=== PATIENT | female | born 1940 ===

== ENCOUNTER → 2017-10-29 12:38 | Outpatient (CLI) | payer MEDICARE, OTHER, SELFPAY | PROVIDERS: Family Provider Chiropractor; PCP Physician Assistant; Visit Provider Physician Assistant | DX: M85.851 Other specified disorders of bone density and structure, right thigh (principal); Z78.0 Asymptomatic menopausal state; R29.890 Loss of height; E07.9 Disorder of thyroid, unspecified; Z82.62 Family history of osteoporosis | CPT/HCPCS: 77080 ==

== ENCOUNTER → 2017-11-26 11:09 | Outpatient (CLI) | payer MEDICARE, OTHER, SELFPAY ==
--- NOTE | 2017-11-26 11:13 | DI.RAD.S_ITS ---
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 COMPARISON: None. FINDINGS: Bones: 5 nonrib-bearing vertebrae are present. There is mild levoconvex curvature with slight anterolisthesis at L2-3 and retrolisthesis at L3-4. Mild L2 vertebral body compression fracture of indeterminate chronicity. No suspicious bony lesions. A surgical clip is present over the posterior margin of the L4-5 disc and there appears to be a left L4 laminotomy. Disc narrowing is most marked at L3-4, L4-5 and L5-S1. Soft tissues: Overlying bowel gas pattern is normal. No suspicious soft tissue calcifications. Oblique images: No pars defects. IMPRESSION: 1. Compression fracture L2 with mild volume loss, age indeterminate. 2. Multilevel degenerative disc disease. Probable prior discectomy L4-5, correlation with clinical history advised. Dictated by: Segun Milton M.D. on 11/26/2017 at 11:40 Approved by: Segun Milton M.D. on 11/26/2017 at 11:46
--- NOTE | 2017-11-26 11:13 | DI.RAD.S_ITS ---
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 COMPARISON: None. FINDINGS: Bones: No fractures or dislocations. Pelvic ring appears intact. No suspicious bony lesions. There is mild, symmetrical hip joint space narrowing with subcortical cystic changes, sclerosis and bony lipping Soft tissues: The visualized bowel gas pattern is normal. No suspicious soft tissue calcifications. IMPRESSION: 1. No acute osseous abnormality. 2. Mild bilateral degenerative hip joint disease. Dictated by: Segun Milton M.D. on 11/26/2017 at 11:38 Approved by: Segun Milton M.D. on 11/26/2017 at 11:40
--- NOTE | 2017-11-26 11:13 | DI.MRI.S_ITS ---
PROCEDURE: MR LUMBAR SPINE WO CON INDICATIONS: Post post lamina syndrome with arachnoiditis and chronic rig TECHNIQUE: Noncontrast sagittal T1 spin echo and T2 fast echo, sagittal STIR, axial T1 and T2 fast spin echo through the lumbar spine. In cases with scoliosis, additional coronal T2 fast spin echo may be performed. COMPARISON: None. FINDINGS: Image quality: Excellent. Alignment and Curvature: Trace anterolisthesis of L2 on L3 Bone Marrow: Marrow is of normal overall signal. There is diffuse lower thoracic disc degeneration with multilevel mild posterior disc bulges. Chronic appearing L2 compression fracture. No acute vertebral body compression fracture. Spinal Cord: Conus medullaris terminates at the T12-L1 level. Visualized cord demonstrates normal signal and size. Paraspinous Soft Tissues: A presumed right renal cysts although technically nonspecific. L1-L2: Broad-based posterior disc bulge abuts arthropathy. Marked narrowing which is contributed by dorsal epidural lipomatosis. Moderate bilateral foraminal narrowing L2-L3: Broad-based posterior disc bulge facet disease. Moderate canal narrowing which is contributed by dorsal epidural lipomatosis. Mild left and mild right foraminal stenosis. L3-L4: Broad-based posterior disc bulge bilateral facet arthropathy. No definite canal narrowing. Moderate left and [id number] right foraminal narrowing. L4-L5: Mild broad-based posterior disc bulge and bilateral facet arthropathy. There is heterogeneous signal intensity involving the right aspect of the canal presumably related to given clinical history of arachnoiditis, with possible chronic scarring. Mild canal narrowing. Moderate left and right foraminal stenoses. L5-S1: Broad-based posterior disc bulge and tiny superimposed central disc protrusion. Moderate canal stenosis. Moderate left and right foraminal narrowing.. IMPRESSION: Multilevel lumbar disc degeneration, with trace anterolisthesis of L2 on L3. Moderate L1-L2, L2-L3 and L5-S1 canal stenoses. Heterogeneous appearance of the spinal canal, nerve roots and thickened thecal sac at the level of L4-L5 presumably related to arachnoiditis and chronic sequela/scarring. Diffuse bilateral foraminal stenoses as detailed above by spinal level. Dictated by: Raulito Avilez M.D. on 11/26/2017 at 13:16 Approved by: Raulito Avilez M.D. on 11/26/2017 at 13:26
== END ==
PROVIDERS: Family Provider Chiropractor; PCP Physician Assistant; Visit Provider Physical Medicine & Rehabilitation
DX: M21.371 Foot drop, right foot (principal); M96.1 Postlaminectomy syndrome, not elsewhere classified; G03.9 Meningitis, unspecified; M51.36 Other intervertebral disc degeneration, lumbar region; M48.061 Spinal stenosis, lumbar region without neurogenic claudication; M16.0 Bilateral primary osteoarthritis of hip; M48.56XA Collapsed vertebra, not elsewhere classified, lumbar region, initial encounter for fracture
CPT/HCPCS: 72110; 72148; 73522

== ENCOUNTER 2018-01-15 09:22 | Outpatient (CLI) | payer MEDICARE, OTHER, SELFPAY ==
[2018-01-15] VITALS (11 sets, daily range): BP systolic 105–134; BP diastolic 47–72; PULSE 63–72; RESP 16–20; TEMP 36.6; O2SAT 97–100
--- NOTE | 2018-01-15 09:24 | DI.RAD.S_ITS ---
PROCEDURE: PAIN L/S TRANSFORAMINAL INJECT INDICATIONS: 79520 Right Transforaminal Epidural Steroid Injection FINDINGS: Fluoroscopic spot filming was performed to verify placement of a spinal needle at the L4-L5 level. Appropriate location(s) of the needle tip(s) was confirmed by injection of iodinated contrast. Please correlate with intraoperative findings. IMPRESSION: Intraprocedural examination within normal limits. Dictated by: Ty Alvarado M.D. on 01/15/2018 at 17:08 Approved by: Ty Alvarado M.D. on 01/15/2018 at 17:08
[2018-01-15] MEDS: MIDAZOLAM 5 MG/5 ML VIAL IV (10:30)
[2018-01-15] MEDS: IOPAMIDOL 15 ML VIAL 3 ML INJ (10:48)
[2018-01-15] MEDS: BUPIVACAINE 0.25% (PF) VIAL 2 ML INJ (10:48)
[2018-01-15] MEDS: methylPREDNISolone acetate 80 MG/ML VIAL INJ (10:49)
[2018-01-15] MEDS: DEXAMETHASONE 10 MG/ML VIAL 20 MG INJ (10:49)
--- NOTE | 2018-01-15 10:55 | P.PCN_ITS ---
Procedures Date/Time Date of procedure: 01/15/18 Time of procedure: 10:54 General Procedure description: PREOP DIAGNOSIS 1. FORMAINAL STENOSIS WITH LE SYMPTOMS POST OP DIAGNOSIS 1. FORMAINAL STENOSIS WITH LE SYMPTOMS PROCEDURES 1. FLUOROSCOPICALLY GUIDED CONTRAST CONTROLLED TRANSFORAMINAL EPIDURAL STEROID INJECTION - RIGHT L4/5 TFESI PHYSICIAN: Severo Souza DO INDICATIONS: Veronica is referred by PAC Denys for treatment of Foraminal Stenosis with Right LE Symptoms FINDINGS Foraminal Nerve Root Compression secondary to disc disease and facet hypertrophy DESCRIPTION OF PROCEDURE: Following denial of allergy and review of potential side effects and complications, including, but not necessarily limited to, infection, allergic reaction, local tissue breakdown, stroke, temporary or permanent nerve injury, paralysis, and possible , the patient indicated that the patient understood and agreed to proceed. An informed consent document was signed by the patient, witnessed by a nurse, and placed in the patient's chart. Additionally, other treatment options including medications, modalities, and physical therapy were reviewed with the patient. After review of previous anaesthesic history and IV conscious sedation the patient was deemed safe to proceed with todays procedure with IV conscious sedation as ASA class II designation. Safety time-out was performed to confirm patient ID, procedure to be performed and site of procedure. IV sedation was accomplished with a combination of 3mg of Versed was administered by the RN after DO order, titrated to patient comfort during the course of the procedure while the patient remained responsive to all verbal commands In the prone position following sterile prep and drape of the lumbar region, the Right L4/5 posterior neuroforamen was identified fluoroscopically. The skin was anesthetized via a 25-gauge 1.5-inch needle with 1% lidocaine solution. At this point, a 25-gauge 3.5-inch spinal needle was atraumatically introduced and advanced under fluoroscopic guidance through the posterior Right L4/5 neuroforamen to approximately the anterior aspect of the canal. Depth was confirmed on lateral view. Following negative aspiration, injection of approximately 1.5 cc of Isovue 200 under live fluoroscopy in the AP view confirmed excellent flow along the nerve root, into the epidural space without vascular or intrathecal uptake observed Radiological data, including multiple fluoroscopic views of the lumbosacral spine, reveal a spinal needle at the right L4/5 posterior neuroforamen. Subsequent views show flow of contrast material flowing superiorly and inferiorly along the nerve root confirming epidural flow. Subsequently, a test dose of 1.5 cc of 1% lidocaine solution was administered and patient was observed for two minutes for signs or symptoms of complications , including abdominal pain, shortness of breath, bilateral upper or lower extremity weakness, nausea and vomiting, prior to steroid injection. At this point, a total of 3 cc or 20 mg of dexamethasone and 80mg Depo Medrol was injected without incident. The procedure tolerated the procedure well without signs or symptoms of complications prior to transfer to the recovery area continued monitoring without incident.The patient was then transferred to the recovery area where they were observed for an appropriate time after the injection. The patient reported a VAS score of 7 prior to the procedure and a post- procedure VAS of 0. Total Fluoroscopy Time: 20.9 seconds Total Conscious Sedation Time: 24min POST OP INSTRUCTIONS The patient was provided a Pain Log to continue to record their response to the target-specific procedure prior to follow-up visit with their referring physician. Additionally, specific post-injection care instructions and a contact number to our office were provided if concerns arise regarding possible complications associated with the procedure are suspected. Severo Souza DO Complications: none
== END 2018-01-15 11:38 ==
LOC: RAD 09:23
PROVIDERS: Family Provider Chiropractor; PCP Physician Assistant; Visit Provider Physical Medicine & Rehabilitation
DX: M51.16 Intervertebral disc disorders with radiculopathy, lumbar region (principal)
CPT/HCPCS: 64483; 99152; 99153; J1040; J1100; J2250

== ENCOUNTER 2018-02-19 12:45 | Outpatient (CLI) | payer MEDICARE, OTHER, SELFPAY ==
[2018-02-19] VITALS (8 sets, daily range): BP systolic 111–133; BP diastolic 47–76; PULSE 63–69; RESP 16–18; TEMP 36.9; O2SAT 94–100
--- NOTE | 2018-02-19 12:48 | DI.RAD.S_ITS ---
PROCEDURE: PAIN L INTERLAMINAR/CAUDAL INJ INDICATIONS: 87157 Para Right L5/S1 Tl CELESTINA FINDINGS: Fluoroscopic spot filming was performed to verify placement of spinal needles at the right L5-S1 level(s), as labeled on the films. Appropriate location(s) of the needle tip(s) was confirmed by injection of iodinated contrast. Dictated by: Raulito Avilez M.D. on 02/19/2018 at 16:42 Approved by: Raulito Avilez M.D. on 02/19/2018 at 16:42
[2018-02-19] MEDS: MIDAZOLAM 5 MG/5 ML VIAL IV (14:24)
[2018-02-19] MEDS: BUPIVACAINE 0.25% (PF) VIAL 2 ML INJ (14:31)
[2018-02-19] MEDS: LIDOCAINE 1% 20 ML INJ 5 ML INJ (14:31)
[2018-02-19] MEDS: IOPAMIDOL 15 ML VIAL 3 ML INJ (14:31)
[2018-02-19] MEDS: DEXAMETHASONE 10 MG/ML VIAL 20 MG INJ (14:31)
[2018-02-19] MEDS: methylPREDNISolone acetate 80 MG/ML VIAL INJ (14:32)
--- NOTE | 2018-02-19 14:45 | P.PCN_ITS ---
Procedures Date/Time Date of procedure: 02/19/18 Time of procedure: 14:44 General Procedure description: PROVIDER: Severo Souza DO Operative Note PREOP DIAGNOSIS 1. HNP WITH RADICULAR FEATURES, 2. MULTILEVEL CENTRAL STENOSIS, POST OP DIAGNOSIS 1. HNP WITH RADICULAR FEATURES, 2. MULTILEVEL CENTRAL STENOSIS, PROCEDURES 1. FLUORSCOPICALLY GUIDED CONTRAST CONTROLLED INTERLAMINAR EPIDURAL STEROID INJECTION - L5/S1 PHYSICIAN: Severo Souza DO INDICATIONS Veronica is referred by for treatment of Bilateral Foraminal Stenosis L> R LE symptoms. FINDINGS Multilevel Central Spinal Stenosis with Nerve Root Compression DESCRIPTION OF PROCEDURE Fluoroscopically guided, contrast-controlled L5/S1 translaminar epidural steroid injection. Following denial of allergy and review of potential side effects and complications, including, but not necessarily limited to, infection, allergic reaction, local tissue breakdown, temporary as well as permanent nerve injury, paralysis, stroke and possible , the patient indicated that the patient understood and agreed to proceed. An informed consent document was signed by the patient, witnessed by a nurse, and placed in the patient's chart. Additionally, other treatment options including modalities, medications, and physical therapy were reviewed with the patient. After review of previous anaesthesic history and IV conscious sedation the patient was deemed safe to proceed with todays procedure with IV conscious sedation as ASA class II designation. Safety time-out was performed to confirm patient ID, procedure to be performed and site of procedure. IV sedation was accomplished with a combination of 3mg of Versed administered by the RN after DO order, titrated to patient comfort during the course of the procedure while the patient remained responsive to all verbal commands. In the prone position, following sterile prep and drape of the lumbar region, the L5/S1 translaminar space was identified fluoroscopically. The skin was anesthetized via a 25-gauge, 1.5-inch needle with 1% lidocaine solution. At this point, a 22-gauge short bevel spinal needle was atraumatically introduced and advanced under fluoroscopic guidance into the region of the L5/S1 translaminar space. Depth was confirmed on lateral view. Radiological data, including multiple fluoroscopic views of the lumbar spine, reveal a spinal needle at the L5/S1 translaminar space. Lateral views then show placement of the needle in the epidural space. Subsequent views show contrast material flowing superiorly and inferiorly in the epidural space. No vascular or intrathecal uptake is observed. At this point, using loss of resistance technique with saline and air, the epidural space was entered. This was confirmed following negative aspiration with injection of approximately 1.5 cc of Isovue 200, showing excellent epidural flow without vascular or intrathecal uptake. At this point, 1 cc of 1 % lidocaine solution combined with 3 cc or 20 mg of dexamethasone and 80mg Depo medrol was injected without incident. The patent tolerated the procedure without signs of symptoms of complications prior to transfer to the recovery area for further monitoring. The patient was then transferred to the recovery area where they were observed for an appropriate period of time after the injection. The patient reported a VAS score of 6 prior to the procedure and a post-procedure VAS of 0. Total Fluoroscopy Time: 11.8 seconds Total Conscious Sedation Time: 24min POST OP INSTRUCTIONS The patient was provided a Pain Log to continue to record their response to the target-specific procedure prior to follow-up visit with their referring physician. Additionally, specific post-injection care instructions and a contact number to our office were provided if concerns arise regarding possible complications associated with the procedure are suspected. Severo Souza DO Complications: none
--- NOTE | 2018-02-19 14:54 | PC.NURSE ---
approx 1434 assisted pt off proc table into wheelchair and transported to post proc area in stable condition
== END 2018-02-19 15:33 ==
LOC: RAD 12:47
PROVIDERS: Family Provider Chiropractor; PCP Physician Assistant; Visit Provider Physical Medicine & Rehabilitation
DX: M51.17 Intervertebral disc disorders with radiculopathy, lumbosacral region (principal); M48.062 Spinal stenosis, lumbar region with neurogenic claudication; M96.1 Postlaminectomy syndrome, not elsewhere classified; M16.11 Unilateral primary osteoarthritis, right hip
CPT/HCPCS: 62323; 99152; J1040; J1100; J2250

== ENCOUNTER → 2018-03-06 11:30 | Outpatient (CLI) | payer MEDICARE, OTHER, SELFPAY ==
--- NOTE | 2018-03-06 | DI.MG.S_ITS ---
BILATERAL DIGITAL SCREENING MAMMOGRAM 3D/2D WITH CAD POST LUMPECTOMY: 03/06/2018 CLINICAL: Routine screening. Personal history of breast cancer. Family history of breast cancer. Comparison is made to exams dated: 12/11/2016 mammogram, 11/30/2015 mammogram - [facility], and 10/20/2014 [facility]. The tissue of both breasts is heterogeneously dense. This may lower the sensitivity of mammography. Current study was also evaluated with a Computer Aided Detection (CAD) system. There are benign post operative findings in the right breast. There also are benign calcifications in both breasts. No significant masses, calcifications, or other findings are seen in either breast. There has been no significant interval change. IMPRESSION: There is no mammographic evidence of malignancy. A 1 year screening mammogram is recommended. This exam was interpreted at Station ID: [id number]. NOTE: For mammograms, a report in lay terms will be sent to the patient. Approximately 15% of breast malignancies will not be visualized mammographically. In the management of a palpable breast mass, a negative mammogram must not discourage biopsy of a clinically suspicious lesion. Electronically Signed By: Natty morataya/angie:03/07/2018 09:05:02 copy to: MARQUIS FLORES copy to: Sherrill Mcfarlane letter sent: Normal Exam ACR BI-RADS Category 2: Benign Finding(s) [id number]
== END ==
PROVIDERS: Family Provider Chiropractor; PCP Physician Assistant; Visit Provider Surgery
DX: Z12.31 Encounter for screening mammogram for malignant neoplasm of breast (principal); Z85.3 Personal history of malignant neoplasm of breast; Z80.3 Family history of malignant neoplasm of breast
CPT/HCPCS: 77063; 77067

== ENCOUNTER 2018-05-07 07:05 | Outpatient (CLI) | payer MEDICARE, OTHER, SELFPAY ==
[2018-05-07] VITALS (8 sets, daily range): BP systolic 104–128; BP diastolic 46–73; PULSE 64–74; RESP 16–18; TEMP 36.7; O2SAT 96–100
--- NOTE | 2018-05-07 07:10 | DI.RAD.S_ITS ---
PROCEDURE: PAIN L/S TRANSFORAMINAL INJECT INDICATIONS: SPINAL STENOSIS FINDINGS: Fluoroscopic spot filming was performed to verify placement of spinal needles at the L3-L4 level(s), as labeled on the films. Appropriate location(s) of the needle tip(s) was confirmed by injection of iodinated contrast. Dictated by: Raulito Avilez M.D. on 05/07/2018 at 11:25 Approved by: Raulito Avilez M.D. on 05/07/2018 at 11:27
[2018-05-07] MEDS: MIDAZOLAM 5 MG/5 ML VIAL IV (08:33)
[2018-05-07] MEDS: methylPREDNISolone acetate 80 MG/ML VIAL INJ (08:38)
[2018-05-07] MEDS: IOPAMIDOL 15 ML VIAL 3 ML INJ (08:38)
[2018-05-07] MEDS: DEXAMETHASONE 10 MG/ML VIAL 20 MG INJ (08:38)
[2018-05-07] MEDS: BUPIVACAINE 0.25% (PF) VIAL 2 ML INJ (08:38)
--- NOTE | 2018-05-07 08:56 | P.PCN_ITS ---
Procedures Date/Time Date of procedure: 05/07/18 Time of procedure: 08:55 General Procedure description: PROVIDER: Severo Souza DO Operative Note PREOP DIAGNOSIS 1. FORAMINAL STENOSIS WITH LE SYMPTOMS, POST OP DIAGNOSIS 1. FORAMINAL STENOSIS WITH LE SYMPTOMS, PROCEDURES 1. FLUOROSCOPICALLY GUIDED CONTRAST CONTROLLED TRANSFORAMINAL EPIDURAL STEROID INJECTION - RIGHT L3/4 TFESI SURGEON: Severo Souza DO INDICATIONS Carline is referred by PAC Denys for treatment of Foraminal Stenosis with right LE Symptoms FINDINGS Foraminal Nerve Root Compression secondary to disc disease and facet hypertrophy DESCRIPTION OF PROCEDURE Following denial of allergy and review of potential side effects and complications, including, but not necessarily limited to, infection, allergic reaction, local tissue breakdown, stroke, temporary or permanent nerve injury, paralysis, and possible , the patient indicated that the patient understood and agreed to proceed. An informed consent document was signed by the patient, witnessed by a nurse, and placed in the patient's chart. Additionally, other treatment options including medications, modalities, and physical therapy were reviewed with the patient. After review of previous anaesthesic history and IV conscious sedation the patient was deemed safe to proceed with todays procedure with IV conscious sedation as ASA class II designation. Safety time-out was performed to confirm patient ID, procedure to be performed and site of procedure. IV sedation was accomplished with a combination of 3mg was administered by the RN after DO order , titrated to patient comfort during the course of the procedure while the patient remained responsive to all verbal commands In the prone position following sterile prep and drape of the lumbar region, the right L3/4 posterior neuroforamen was identified fluoroscopically. The skin was anesthetized via a 25-gauge 1.5-inch needle with 1% lidocaine solution. At this point, a 25-gauge 3.5-inch spinal needle was atraumatically introduced and advanced under fluoroscopic guidance through the posterior right L3/4 neuroforamen to approximately the anterior aspect of the canal. Depth was confirmed on lateral view. Following negative aspiration, injection of approximately 1.5 cc of Isovue 200 under live fluoroscopy in the AP view confirmed excellent flow along the nerve root, into the epidural space without vascular or intrathecal uptake observed Radiological data, including multiple fluoroscopic views of the lumbosacral spine, reveal a spinal needle at the right L3/4 posterior neuroforamen. Subsequent views show flow of contrast material flowing superiorly and inferiorly along the nerve root confirming epidural flow. Subsequently, a test dose of 1.5 cc of 1% lidocaine solution was administered and patient was observed for two minutes for signs or symptoms of complications , including abdominal pain, shortness of breath, bilateral upper or lower extremity weakness, nausea and vomiting, prior to steroid injection. At this point, a total of 3 cc or 20 mg of dexamethasone and 80mg Depo medrol was injected without incident. The patient tolerated the procedure well without signs or symptoms of complications prior to transfer to the recovery area continued monitoring without incident. The patient was then transferred to the recovery area where they were observed for an appropriate time after the injection. The patient reported a VAS score of 7 prior to the procedure and a post-procedure VAS of 0. Total Fluoroscopy Time: 24.2 seconds Total Conscious Sedation Time: 24min POST OP INSTRUCTIONS The patient was provided a Pain Log to continue to record their response to the target-specific procedure prior to follow-up visit with their referring physician. Additionally, specific post-injection care instructions and a contact number to our office were provided if concerns arise regarding possible complications associated with the procedure are suspected. Severo Souza, Complications: none
--- NOTE | 2018-05-07 09:38 | PC.NURSE ---
Returned from post procedure at 0851. pt unable to bear weight on bilateral legs. able to transfer her safely from W/C to chair with pivot transfer. Resumed Care from Franchesca WINKLER. pt awake and alert.
== END 2018-05-07 09:30 ==
LOC: RAD 07:09
PROVIDERS: Family Provider Chiropractor; PCP Physician Assistant; Visit Provider Physical Medicine & Rehabilitation
DX: M48.062 Spinal stenosis, lumbar region with neurogenic claudication (principal); M51.16 Intervertebral disc disorders with radiculopathy, lumbar region; G03.9 Meningitis, unspecified
CPT/HCPCS: 64483; 99152; J1040; J1100; J2250

== ENCOUNTER 2018-07-08 07:55 | Outpatient (CLI) | payer MEDICARE, OTHER, SELFPAY ==
[2018-07-08] VITALS (7 sets, daily range): BP systolic 101–124; BP diastolic 51–79; PULSE 63–102; RESP 16–18; TEMP 36.5; O2SAT 98–100
--- NOTE | 2018-07-08 07:56 | DI.RAD.S_ITS ---
PROCEDURE: PAIN L INTERLAMINAR/CAUDAL INJ INDICATIONS: SPINAL STENOSIS FINDINGS: Fluoroscopic spot filming was performed to verify placement of spinal needles at the L3-L4 level(s), as labeled on the films. Appropriate location(s) of the needle tip(s) was confirmed by injection of iodinated contrast. Dictated by: Raulito Avilez M.D. on 07/08/2018 at 10:37 Approved by: Raulito Avilez M.D. on 07/08/2018 at 10:37
[2018-07-08] MEDS: MIDAZOLAM 5 MG/5 ML VIAL IV (09:00)
[2018-07-08] MEDS: IOPAMIDOL 15 ML VIAL 3 ML INJ (09:05)
[2018-07-08] MEDS: DEXAMETHASONE 10 MG/ML VIAL 20 MG INJ (09:05)
[2018-07-08] MEDS: BUPIVACAINE 0.25% (PF) VIAL 2 ML INJ (09:05)
--- NOTE | 2018-07-08 09:11 | PC.NURSE ---
assisting pt off table and transporting to post proc area in stable condition
--- NOTE | 2018-07-08 09:12 | P.PCN_ITS ---
Procedures Date/Time Date of procedure: 07/08/18 Time of procedure: 09:12 General Procedure description: POST OP DIAGNOSIS 1. HNP WITH RADICULAR FEATURES, 2. MULTILEVEL CENTRAL STENOSIS, PROCEDURES 1. FLUORSCOPICALLY GUIDED CONTRAST CONTROLLED INTERLAMINAR EPIDURAL STEROID INJECTION - L3/4 PHYSICIAN: Severo Souza DO INDICATIONS Veronica is referred by PAC Denys for treatment of Bilateral Foraminal Stenosis L>R LE symptoms. FINDINGS Multilevel Central Spinal Stenosis with Nerve Root Compression DESCRIPTION OF PROCEDURE Fluoroscopically guided, contrast-controlled L3/4 translaminar epidural steroid injection. Following denial of allergy and review of potential side effects and complications, including, but not necessarily limited to, infection, allergic reaction, local tissue breakdown, temporary as well as permanent nerve injury, paralysis, stroke and possible , the patient indicated that the patient understood and agreed to proceed. An informed consent document was signed by the patient, witnessed by a nurse, and placed in the patient's chart. Additionally, other treatment options including modalities, medications, and physical therapy were reviewed with the patient. After review of previous anaesthesic history and IV conscious sedation the patient was deemed safe to proceed with todays procedure with IV conscious sedation as ASA class II designation. Safety time-out was performed to confirm patient ID, procedure to be performed and site of procedure. IV sedation was accomplished with a combination of 3mg of Versed was administered by the RN after DO order, titrated to patient comfort during the course of the procedure while the patient remained responsive to all verbal commands. In the prone position, following sterile prep and drape of the lumbar region, the L3/4 translaminar space was identified fluoroscopically. The skin was anesthetized via a 25-gauge, 1.5-inch needle with 1% lidocaine solution. At this point, a 22-gauge short bevel spinal needle was atraumatically introduced and advanced under fluoroscopic guidance into the region of the L3/4 translaminar space. Depth was confirmed on lateral view. Radiological data, including multiple fluoroscopic views of the lumbar spine, reveal a spinal needle at the L3/4 translaminar space. Lateral views then show placement of the needle in the epidural space. Subsequent views show contrast material flowing superiorly and inferiorly in the epidural space. No vascular or intrathecal uptake is observed. At this point, using loss of resistance technique with saline and air, the epidural space was entered. This was confirmed following negative aspiration with injection of approximately 1.5 cc of Isovue 200, showing excellent epidural flow without vascular or intrathecal uptake. At this point, 1 cc of 1% lidocaine solution combined with 2cc or 20mg of dexamethasone was injected without incident. The patient tolerated the procedure well without signs or symptoms of complications prior to transfer to the recovery area continued monitoring without incident. The patient was then transferred to the recovery area where they were observed for an appropriate period of time after the injection. The patient reported a VAS score of 6 prior to the procedure and a post- procedure VAS of 0. Total Fluoroscopy Time: 11.8 seconds Total Conscious Sedation Time: 24min POST OP INSTRUCTIONS The patient was provided a Pain Log to continue to record their response to the target-specific procedure prior to follow-up visit with their referring physician. Additionally, specific post-injection care instructions and a contact number to our office were provided if concerns arise regarding possible complications associated with the procedure are suspected. Severo Souza, Complications: none
--- NOTE | 2018-07-08 09:38 | PC.NURSE ---
pt returned from procedure awake and alert, able to transfer to chair from W/C with minimal assist, pt a little unsteady on feet. She did get her jeans buttoned up by herself while standing. Resumed monitoring from Franchesca WINKLER.
--- NOTE | 2018-07-09 11:54 | PC.NURSE ---
ATTEMPTED FOLLOW UP PHONE CALL, PHONE BUSY, WILL ATTEMPT AGAIN BEFORE END OF DAY.
== END 2018-07-08 09:54 ==
LOC: RAD 07:56
PROVIDERS: Family Provider Chiropractor; PCP Physician Assistant; Visit Provider Physical Medicine & Rehabilitation
DX: M51.16 Intervertebral disc disorders with radiculopathy, lumbar region (principal); M48.062 Spinal stenosis, lumbar region with neurogenic claudication; M96.1 Postlaminectomy syndrome, not elsewhere classified; G03.9 Meningitis, unspecified
CPT/HCPCS: 62323; 99152; J1100; J2250; J3010

== ENCOUNTER 2018-11-03 14:15 | Outpatient (RCR) | payer MEDICARE, OTHER, SELFPAY ==
--- NOTE | 2018-10-01 17:55 | PT.OIE ---
Current Diagnoses Unilateral primary osteoarthritis, right hip (10/01/18) Spinal stenosis, lumbar region with neurogenic claudication (10/01/18) Postlaminectomy syndrome, not elsewhere classified (10/01/18) Provider Visit Care Team Role Provider Type Sherrill Mcfarlane PA-C Primary Care Provider Non-Staff Specialty: Medical Address: [address] [place], [address] Email: Carine Hill DC Family Provider Non-Staff Specialty: Medical Address: [address] [place], [address] Email: Severo Souza DO Attending Provider Physician Specialty: Physiatry Pain Management Address: [address] [place] [address], [id number] Email: Physical Therapy Initial Evaluation PT-OP-A Visit Information Start: 10/01/18 12:40 Freq: Status: Active Protocol: Document 10/01/18 13:45 HH (Rec: 10/01/18 17:52 [email or web address]) Out-Patient Physical Therapy Visit Information Visit Information Visit Type Initial Evaluation Visit Start Time 13:45 Visit Stop Time 14:30 Total Visit Minutes 45 Visit Number 1 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 reports her LBP started since and received L4-L5 laminectomy in 1971 which resulted Cauda equina syndrome and R foot drop, along with persistent back pain. She had her 2nd laminectomy on the same region in which did relieve her some back pain. She also started to use R AFO since her 2nd surgery. She stated she started to have R hip pain and progressive decrease in strength and mobility due to her pain. 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 She is also seeing chiropractor one every 2weeks for many years and it has been helpful for her. 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 She has difficulty carrying 40-50lbs objects at waist level as well. Prior Treatments and Tests L4-L5 laminectomy in 1971 and Seeing chiropractor once every 2 weeks. Physical therapy 3-4 years ago for overall strengthening Treatment Goals Patient/Caregiver Goals 1. 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 to increase overall balance so she wont fall in the next 6 months 3. 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 Patient Questionnaires Lower Extremity Functional Scale LEFS Score 31 LEFS Impairment 60 to 79% Impaired (Score 17- 31) OP-PT Pain Assessment Location Lower Back Pain Location Details LBP Intensity 5 Scale Used Numeric (1 - 10) Description Aching Dull Frequency Constant Pain Aggravating Factors Standing Sitting Pain Alleviating Factors Exercise PT-OP-D Balance Start: 10/01/18 12:40 Freq: Status: Active Protocol: Document 10/01/18 13:45 HH (Rec: 10/01/18 17:52 HH [email or web address]) OP-PT Balance Assessment Sitting Balance Static Sitting Balance Ability Normal Dynamic Sitting Balance Ability Normal Standing Balance Static Standing Balance Ability Good Dynamic Standing Balance Ability Good Balance Tests Single Limb Standing Single Limb- Right unable Single Limb- Left unable Gonzalez Fall Scale Copyright Permission Carlos JM, Carlos RM, Claudine SJ. Development of a scale to identify the fall- prone patient. Can J Aging 1989;8;366-7. Phan Gonzalez (2009). Preventing patient falls. (2nd ed). [place]: [place]. PT-OP-G Mobility & Gait Start: 10/01/18 12:40 Freq: Status: Active Protocol: Document 10/01/18 13:45 HH (Rec: 10/01/18 17:52 [email or web address]) OP Gait Assessment Gait Gait Assistance Required: Independent Assistive Devices Assistive Device None Gait Deviations General Gait Pattern Antalgic Decreased Stride Length Decreased Feet Clearance Factors Limiting Gait Function Factors Limiting Gait Function Abnormal Tonal Influences Decreased Activity Tolerance Decreased Sensation Decreased Strength Limited Range of Motion Pain Poor Balance Poor Safety Awareness Comments Gait Comments Steppage gait with/ without R AFO due to R foot drop. Unable to perform heel strike Stair Climbing Evaluation Devices Stair Climbing Assistive Devices Left Railing Right Railing Technique/Endurance Stair Climbing Direction Ascend and Descend Stair Climbing Technique Step Over Step PT-OP-H Neuro Start: 10/01/18 12:40 Freq: Status: Active Protocol: Document 10/01/18 13:45 HH (Rec: 10/01/18 17:52 [email or web address]) Sensation Evaluation Gross Sensation Gross Sensation Right LE Impaired Sensation Description Numbness Dermatome Impairments S1 Deep Tendon Reflex & Clonus Assessment Deep Tendon Reflex Bilateral Achilles Deep Tendon Reflex 1+ Diminished Bilateral Patellar Deep Tendon Reflex 2+ Normal PT-OP-J Posture/Palpation/Skin Start: 10/01/18 12:40 Freq: Status: Active Protocol: Document 10/01/18 13:45 HH (Rec: 10/01/18 17:52 [email or web address]) Palpation Assessment Location lumbar region Palpation Findings Soft Tissue Tightness Muscle Guarding Tenderness Palpation Details significant tenderness to pressure at lumbar spine L1-l5 and paraspinals. PT-OP-K Range of Motion Start: 10/01/18 12:40 Freq: Status: Active Protocol: Document 10/01/18 13:45 HH (Rec: 10/01/18 17:52 [email or web address]) Lumbar Spine Range of Motion Lumbar Spine Percentage Testing Position Sitting Flexion 40 Extension 20 Rotation Left 50 Rotation Right 30 ROM Limitations Soft Tissue Tightness Muscle Weakness Pain Comments increase in pain with end range for all directions (ext > flexion> rotation) Ankle and Foot Goniometric Range of Motion Ankle and Foot Measured in Degrees Right Active Ankle/Foot ROM WFL No Testing Position Supine Plantarflexion 50 Ankle and Foot ROM Limitations ROM Limitations Muscle Weakness Muscle Tone Comments R DF = at negative 10 degrees PT-OP-M Strength Start: 10/01/18 12:40 Freq: Status: Active Protocol: Document 10/01/18 13:45 HH (Rec: 10/01/18 17:52 [email or web address]) Hip Strength Hip Manual Muscle Testing Right Flexion (L2) 4 Good Extension (S1) 4- Good- Abduction 4- Good- Adduction 4 Good Left Flexion (L2) 4 Good Extension (S1) 4 Good Abduction 4 Good Adduction 4 Good Knee Strength Knee Manual Muscle Testing Right Flexion (S2) 3+ Fair+ Extension (L3) 4+ Good+ Left Flexion (S2) 3+ Fair+ Extension (L3) 4+ Good+ Ankle/Foot Strength Ankle and Foot Manual Muscle Testing Right Dorsiflexion (L4) 0 Zero Plantarflexion (S1) 4 Good Inversion 1 Trace Eversion (S1) 3- Fair- Left Dorsiflexion (L4) 4+ Good+ Plantarflexion (S1) 4+ Good+ Inversion 4+ Good+ Eversion (S1) 4+ Good+ PT-OP-T Assessment and Plan Start: 10/01/18 12:40 Freq: Status: Active Protocol: Document 10/01/18 13:45 HH (Rec: 10/01/18 17:52 [email or web address]) Physical Therapy Assessment Rehab Potential Rehabilitation Potential Good Evaluation Complexity Number of Personal Factors/Comorbidities 3 or More Number of Body Systems Impaired 4 or More Clinical Presentation at Evaluation Stable Impairments Impairments Activity Tolerance Balance Functional Activities Functional Mobility Gait Pain Posture ROM Sensation Soft Tissue Mobility Strength Tone Transfers Other Concerns Fall Risk high Barriers to Rehabilitation depression fibromyalgia breast CA in 2004 Goals floor recovery Impairment unable to recover from floor independently Binder Stripper Hand Goal (LTG) Pt will be able to recover from floor independently in a safe manner LTG Duration 12 weeks strength Impairment unable to carry weight due to overall weakness Care Home Goal (LTG) Pt will be able to carry objects with 20-30# at waist level therefore 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 LTG Duration 12 weeks Assessment Summary Assessment Pt is a 78 yo female presented to clinic with c/o chronic LBP, R hip pain, generalized muscle weakness, impaired activity tolerance and impaired gait. Pt is high complexity due to her complicated past medical history and high fall risk. Upon assessment, pt presents significant limited trunk ROM especially lumbar region due to pain which is difficult to assess special test. She has decreased sensation to light touch, pressure and proprioception with S1 dermatome (especially at her distal RLE) . Noticeable hamstring weakness bilaterally and foot drop on R foot due to her failed 1st back surgery . Pt also presents significant poor dynamic and single leg balance (unable to perform), with a recent hx of multiple falls. During gait analysis, pt uses a high steppage gait with/ without her R AFO Posterior [place]. She often loses balance during turns and movement inititaion. Cont balance assessment is needed such as DGI and [place] for next visit. Also recommended pt to acquire new R AFO if possible since her current one's lateral spring is broken. 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 Physical Therapy Plan Frequency and Duration Frequency of Treatment 2x/Week Duration of Treatment 12 Plan of Care Start Date 10/01/18 Plan of Care End Date 01/01/19 Therapeutic Interventions Therapeutic Interventions Aquatic Therapy Balance Training Gait Training Home Exercise Program Joint Mobilizations Manual Therapy Neuromuscular Re-education Orthotic/Prosthetic Management Patient/Caregiver Education Self-Care/Home Management Soft Tissue Mobilization Taping Therapeutic Activities Therapeutic Exercises Modalities Cold Pack/Ice Massage Electric Stimulation Hot Packs Infrared Therapy Ultrasound Next Visit Focus/Plan Next Note Type Treatment Note Next Visit Plan balance assessment, TUG, [place], DGI check LLD, heel lift if possible HEP manual therapy on low back for relaxation trunk ROM as daphney hip strengthening and stability training as daphney ( single leg and bilateral) balance training as daphney
--- NOTE | 2018-10-09 18:55 | PT.OTN ---
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 reports her LBP started since and received L4-L5 laminectomy in 1971 which resulted Cauda equina syndrome and R foot drop, along with persistent back pain. She had her 2nd laminectomy on the same region in which did relieve her some back pain. She also started to use R AFO since her 2nd surgery. She stated she started to have R hip pain and progressive decrease in strength and mobility due to her pain. 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 She is also seeing chiropractor one every 2weeks for many years and it has been helpful for her. 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 She has difficulty carrying 40-50lbs objects at waist level as well. Prior Treatments and Tests L4-L5 laminectomy in 1971 and Seeing chiropractor once every 2 weeks. Physical therapy 3-4 years ago for overall strengthening Treatment Goals Patient/Caregiver Goals 1. 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 to increase overall balance so she wont fall in the next 6 months 3. 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 Personal Factors Other Personal Factors That May Effect depression Therapy/Recovery fibromyalgia PT-OP-C Subjective Start: 10/01/18 12:40 Freq: Status: Active Protocol: Document 10/09/18 09:45 HH (Rec: 10/09/18 18:55 HH [email or web address]) OP-PT Subjective Patient Comments Patient Comments Im looking forward to this treatment session PT-OP-D Balance Start: 10/01/18 12:40 Freq: Status: Active Protocol: Document 10/01/18 13:45 HH (Rec: 10/01/18 17:52 HH [email or web address]) OP-PT Balance Assessment Sitting Balance Static Sitting Balance Ability Normal Dynamic Sitting Balance Ability Normal Standing Balance Static Standing Balance Ability Good Dynamic Standing Balance Ability Good Balance Tests Single Limb Standing Single Limb- Right unable Single Limb- Left unable Gonzalez Fall Scale Copyright Permission PT-OP-G Mobility & Gait Start: 10/01/18 12:40 Freq: Status: Active Protocol: Document 10/01/18 13:45 HH (Rec: 10/01/18 17:52 HH [email or web address]) OP Gait Assessment Gait Gait Assistance Required: Independent Assistive Devices Assistive Device None Gait Deviations General Gait Pattern Antalgic Decreased Stride Length Decreased Feet Clearance Factors Limiting Gait Function Factors Limiting Gait Function Abnormal Tonal Influences Decreased Activity Tolerance Decreased Sensation Decreased Strength Limited Range of Motion Pain Poor Balance Poor Safety Awareness Comments Gait Comments Steppage gait with/ without R AFO due to R foot drop. Unable to perform heel strike Stair Climbing Evaluation Devices Stair Climbing Assistive Devices Left Railing Right Railing Technique/Endurance Stair Climbing Direction Ascend and Descend Stair Climbing Technique Step Over Step PT-OP-H Neuro Start: 10/01/18 12:40 Freq: Status: Active Protocol: Document 10/01/18 13:45 HH (Rec: 10/01/18 17:52 HH [email or web address]) Sensation Evaluation Gross Sensation Gross Sensation Right LE Impaired Sensation Description Numbness Dermatome Impairments S1 Deep Tendon Reflex & Clonus Assessment Deep Tendon Reflex Bilateral Achilles Deep Tendon Reflex 1+ Diminished Bilateral Patellar Deep Tendon Reflex 2+ Normal PT-OP-J Posture/Palpation/Skin Start: 10/01/18 12:40 Freq: Status: Active Protocol: Document 10/01/18 13:45 HH (Rec: 10/01/18 17:52 [email or web address]) Palpation Assessment Location lumbar region Palpation Findings Soft Tissue Tightness Muscle Guarding Tenderness Palpation Details significant tenderness to pressure at lumbar spine L1-l5 and paraspinals. PT-OP-K Range of Motion Start: 10/01/18 12:40 Freq: Status: Active Protocol: Document 10/01/18 13:45 HH (Rec: 10/01/18 17:52 [email or web address]) Lumbar Spine Range of Motion Lumbar Spine Percentage Testing Position Sitting Flexion 40 Extension 20 Rotation Left 50 Rotation Right 30 ROM Limitations Soft Tissue Tightness Muscle Weakness Pain Comments increase in pain with end range for all directions (ext > flexion> rotation) Ankle and Foot Goniometric Range of Motion Ankle and Foot Right Active Ankle/Foot ROM WFL No Testing Position Supine Plantarflexion 50 Ankle and Foot ROM Limitations ROM Limitations Muscle Weakness Muscle Tone Comments R DF = at negative 10 degrees PT-OP-M Strength Start: 10/01/18 12:40 Freq: Status: Active Protocol: Document 10/01/18 13:45 HH (Rec: 10/01/18 17:52 [email or web address]) Hip Strength Hip Manual Muscle Testing Right Flexion (L2) 4 Good Extension (S1) 4- Good- Abduction 4- Good- Adduction 4 Good Left Flexion (L2) 4 Good Extension (S1) 4 Good Abduction 4 Good Adduction 4 Good Knee Strength Knee Manual Muscle Testing Right Flexion (S2) 3+ Fair+ Extension (L3) 4+ Good+ Left Flexion (S2) 3+ Fair+ Extension (L3) 4+ Good+ Ankle/Foot Strength Ankle and Foot Manual Muscle Testing Right Dorsiflexion (L4) 0 Zero Plantarflexion (S1) 4 Good Inversion 1 Trace Eversion (S1) 3- Fair- Left Dorsiflexion (L4) 4+ Good+ Plantarflexion (S1) 4+ Good+ Inversion 4+ Good+ Eversion (S1) 4+ Good+ PT-OP-Q Treatments Start: 10/01/18 12:40 Freq: Status: Active Protocol: Document 10/09/18 09:45 HH (Rec: 10/09/18 18:55 HH [email or web address]) Therapeutic Exercises Supine Exercises hip adductor stretch Side right Reps/Minutes 2 mins hip flexor stretch Side right Reps/Minutes 2 mins hip figure 4 stretch Side right Reps/Minutes 2 mins Standing Exercises standing hip flexion Side right Equipment Used UE support on table Reps/Minutes 4mins Comments cues to prevent trunk lateral flexion doorway stretch on R low back Standing Exercise Name trunk lateral flexion to L Side right Reps/Minutes 4 mins Manual Therapy Treatment Soft Tissue Mobilization R QL ,parapsinals Mobilization Type Cross-Friction Strumming Sustained Pressure Trigger Point Release Intensity/Depth Moderate Body Position Sidelying Joint Mobilizations R hip lateral glide Grade II Body Position Supine Reps/Duration 5 mins Manual Traction R hip distraction Body Position Supine Reps/Duration 5 mins PT-OP-T Assessment and Plan Start: 10/01/18 12:40 Freq: Status: Active Protocol: Document 10/09/18 09:45 HH (Rec: 10/09/18 18:55 HH [email or web address]) Physical Therapy Assessment Goals floor recovery Impairment unable to recover from floor independently Social Media Editor Goal (LTG) Pt will be able to recover from floor independently in a safe manner LTG Duration 12 weeks strength Impairment unable to carry weight due to overall weakness Social Media Editor Goal (LTG) Pt will be able to carry objects with 20-30# at waist level therefore 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 LTG Duration 12 weeks Assessment Summary Assessment Gait analysis today showed pt' s excessive activation of R QL and paraspinals during swing phase of RLE. Discussed with pt regarding acquiring a dynamic AFO with DF assist. Tx focused on hip mobility, manual therapy on R QL and paraspinals and active R hip flexion without lateral flexion. Added doorway stretch and active hip flexion . Physical Therapy Plan Next Visit Focus/Plan Next Note Type Treatment Note Next Visit Plan review HEP check LLD , heel lift if possible trunk ROM , QL stretch R hip flexion strengthening balance training as daphney
--- NOTE | 2018-10-28 16:52 | PT.OTN ---
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 reports her LBP started since and received L4-L5 laminectomy in 1971 which resulted Cauda equina syndrome and R foot drop, along with persistent back pain. She had her 2nd laminectomy on the same region in which did relieve her some back pain. She also started to use R AFO since her 2nd surgery. She stated she started to have R hip pain and progressive decrease in strength and mobility due to her pain. 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 She is also seeing chiropractor one every 2weeks for many years and it has been helpful for her. 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 She has difficulty carrying 40-50lbs objects at waist level as well. Prior Treatments and Tests L4-L5 laminectomy in 1971 and Seeing chiropractor once every 2 weeks. Physical therapy 3-4 years ago for overall strengthening Treatment Goals Patient/Caregiver Goals 1. 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 to increase overall balance so she wont fall in the next 6 months 3. 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 PT-OP-D Balance Start: 10/01/18 12:40 Freq: Status: Active Protocol: Document 10/01/18 13:45 HH (Rec: 10/01/18 17:52 HH [email or web address]) OP-PT Balance Assessment Sitting Balance Static Sitting Balance Ability Normal Dynamic Sitting Balance Ability Normal Standing Balance Static Standing Balance Ability Good Dynamic Standing Balance Ability Good Balance Tests Single Limb Standing Single Limb- Right unable Single Limb- Left unable Gonzalez Fall Scale Copyright Permission PT-OP-G Mobility & Gait Start: 10/01/18 12:40 Freq: Status: Active Protocol: Document 10/01/18 13:45 HH (Rec: 10/01/18 17:52 HH [email or web address]) OP Gait Assessment Gait Gait Assistance Required: Independent Assistive Devices Assistive Device None Gait Deviations General Gait Pattern Antalgic Decreased Stride Length Decreased Feet Clearance Factors Limiting Gait Function Factors Limiting Gait Function Abnormal Tonal Influences Decreased Activity Tolerance Decreased Sensation Decreased Strength Limited Range of Motion Pain Poor Balance Poor Safety Awareness Comments Gait Comments Steppage gait with/ without R AFO due to R foot drop. Unable to perform heel strike Stair Climbing Evaluation Devices Stair Climbing Assistive Devices Left Railing Right Railing Technique/Endurance Stair Climbing Direction Ascend and Descend Stair Climbing Technique Step Over Step PT-OP-H Neuro Start: 10/01/18 12:40 Freq: Status: Active Protocol: Document 10/01/18 13:45 HH (Rec: 10/01/18 17:52 HH [email or web address]) Sensation Evaluation Gross Sensation Gross Sensation Right LE Impaired Sensation Description Numbness Dermatome Impairments S1 Deep Tendon Reflex & Clonus Assessment Deep Tendon Reflex Bilateral Achilles Deep Tendon Reflex 1+ Diminished Bilateral Patellar Deep Tendon Reflex 2+ Normal PT-OP-J Posture/Palpation/Skin Start: 10/01/18 12:40 Freq: Status: Active Protocol: Document 10/01/18 13:45 HH (Rec: 10/01/18 17:52 HH [email or web address]) Palpation Assessment Location lumbar region Palpation Findings Soft Tissue Tightness Muscle Guarding Tenderness Palpation Details significant tenderness to pressure at lumbar spine L1-l5 and paraspinals. PT-OP-K Range of Motion Start: 10/01/18 12:40 Freq: Status: Active Protocol: Document 10/01/18 13:45 HH (Rec: 10/01/18 17:52 HH [email or web address]) Lumbar Spine Range of Motion Lumbar Spine Percentage Testing Position Sitting Flexion 40 Extension 20 Rotation Left 50 Rotation Right 30 ROM Limitations Soft Tissue Tightness Muscle Weakness Pain Comments increase in pain with end range for all directions (ext > flexion> rotation) Ankle and Foot Goniometric Range of Motion Ankle and Foot Right Active Ankle/Foot ROM WFL No Testing Position Supine Plantarflexion 50 Ankle and Foot ROM Limitations ROM Limitations Muscle Weakness Muscle Tone Comments R DF = at negative 10 degrees PT-OP-M Strength Start: 10/01/18 12:40 Freq: Status: Active Protocol: Document 10/01/18 13:45 HH (Rec: 10/01/18 17:52 HH [email or web address]) Hip Strength Hip Manual Muscle Testing Right Flexion (L2) 4 Good Extension (S1) 4- Good- Abduction 4- Good- Adduction 4 Good Left Flexion (L2) 4 Good Extension (S1) 4 Good Abduction 4 Good Adduction 4 Good Knee Strength Knee Manual Muscle Testing Right Flexion (S2) 3+ Fair+ Extension (L3) 4+ Good+ Left Flexion (S2) 3+ Fair+ Extension (L3) 4+ Good+ Ankle/Foot Strength Ankle and Foot Manual Muscle Testing Right Dorsiflexion (L4) 0 Zero Plantarflexion (S1) 4 Good Inversion 1 Trace Eversion (S1) 3- Fair- Left Dorsiflexion (L4) 4+ Good+ Plantarflexion (S1) 4+ Good+ Inversion 4+ Good+ Eversion (S1) 4+ Good+ PT-OP-Q Treatments Start: 10/01/18 12:40 Freq: Status: Active Protocol: Document 10/28/18 10:30 AMB (Rec: 10/28/18 16:52 AMB [email or web address]) Therapeutic Exercises Supine Exercises 2 Supine Exercise Name IT band stretch Reps/Minutes 2 min 1 Supine Exercise Name hamstring stretch Reps/Minutes 2 min hip adductor stretch Side right Reps/Minutes 2 mins hip flexor stretch Side right Reps/Minutes 2 mins hip figure 4 stretch Side right Reps/Minutes 2 mins Sidelying Exercises 1 Sidelying Exercise Name QL stretch Reps/Minutes 30x2 Manual Therapy Treatment Soft Tissue Mobilization R QL ,parapsinals Mobilization Type Cross-Friction Strumming Sustained Pressure Trigger Point Release Intensity/Depth Moderate Body Position Sidelying Manual Traction R hip distraction Body Position Supine Reps/Duration 5 mins PT-OP-T Assessment and Plan Start: 10/01/18 12:40 Freq: Status: Active Protocol: Document 10/28/18 10:30 AMB (Rec: 10/28/18 16:52 AMB [email or web address]) Physical Therapy Assessment Assessment Summary Assessment Sent prescription to referring physician regarding AFO. Pt states that she has had prior plastic AFO that she did not like due to heaviness. Will wait until we get prescription back and then send to enterprise analyst. Pt needed follow up with HEP today, and suggested pool today. Pt has had prior physical therapy and did not like the core stabilization because it was boring. Physical Therapy Plan Next Visit Focus/Plan Next Note Type Treatment Note Next Visit Plan review HEP check LLD , heel lift if possible trunk ROM , QL stretch R hip flexion strengthening balance training as daphney
--- NOTE | 2018-11-03 16:51 | PT.OTN ---
Current Diagnoses Unilateral primary osteoarthritis, right hip (11/03/18) Spinal stenosis, lumbar region with neurogenic claudication (11/03/18) Postlaminectomy syndrome, not elsewhere classified (11/03/18) Physical Therapy Treatment Note PT-OP-A Visit Information Start: 10/01/18 12:40 Freq: Status: Active Protocol: Document 11/03/18 14:29 LRN (Rec: 11/03/18 15:13 LRN [id number]) Out-Patient Physical Therapy Visit Information Visit Information Visit Type Treatment Note Visit Start Time 14:29 Visit Stop Time 15:12 Total Visit Minutes 43 Visit Number 4 Number of PASTORAL MINISTRIES PROFESSOR Visits 0 Evaluation Information Evaluation Date 10/01/18 Precautions Precautions high fall risks Fibromyalgia PT-OP-B Current Condition Start: 10/01/18 12:40 Freq: Status: Active Protocol: Document 10/01/18 13:45 HH (Rec: 10/01/18 17:52 HH [email or web address]) Current Condition History of Current Condition Onset Date since 1971 Current Complaints Chronic LBP, R hip pain, decreased balance and impaired gait History of Current Condition Pt presents to clinic with chronic LBP and R hip pain, decreased balance and overall weakness and impaired gait. reports her LBP started since and received L4-L5 laminectomy in 1971 which resulted Cauda equina syndrome and R foot drop, along with persistent back pain. She had her 2nd laminectomy on the same region in which did relieve her some back pain. She also started to use R AFO since her 2nd surgery. She stated she started to have R hip pain and progressive decrease in strength and mobility due to her pain. 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 She is also seeing chiropractor one every 2weeks for many years and it has been helpful for her. 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 She has difficulty carrying 40-50lbs objects at waist level as well. Prior Treatments and Tests L4-L5 laminectomy in 1971 and Seeing chiropractor once every 2 weeks. Physical therapy 3-4 years ago for overall strengthening Treatment Goals Patient/Caregiver Goals 1. 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 to increase overall balance so she wont fall in the next 6 months 3. 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 Pt requests review of HEP. PT-OP-D Balance Start: 10/01/18 12:40 Freq: Status: Active Protocol: Document 10/01/18 13:45 HH (Rec: 10/01/18 17:52 HH [email or web address]) OP-PT Balance Assessment Sitting Balance Static Sitting Balance Ability Normal Dynamic Sitting Balance Ability Normal Standing Balance Static Standing Balance Ability Good Dynamic Standing Balance Ability Good Balance Tests Single Limb Standing Single Limb- Right unable Single Limb- Left unable Gonzalez Fall Scale Copyright Permission PT-OP-G Mobility & Gait Start: 10/01/18 12:40 Freq: Status: Active Protocol: Document 10/01/18 13:45 HH (Rec: 10/01/18 17:52 HH [email or web address]) OP Gait Assessment Gait Gait Assistance Required: Independent Assistive Devices Assistive Device None Gait Deviations General Gait Pattern Antalgic Decreased Stride Length Decreased Feet Clearance Factors Limiting Gait Function Factors Limiting Gait Function Abnormal Tonal Influences Decreased Activity Tolerance Decreased Sensation Decreased Strength Limited Range of Motion Pain Poor Balance Poor Safety Awareness Comments Gait Comments Steppage gait with/ without R AFO due to R foot drop. Unable to perform heel strike Stair Climbing Evaluation Devices Stair Climbing Assistive Devices Left Railing Right Railing Technique/Endurance Stair Climbing Direction Ascend and Descend Stair Climbing Technique Step Over Step PT-OP-H Neuro Start: 10/01/18 12:40 Freq: Status: Active Protocol: Document 10/01/18 13:45 HH (Rec: 10/01/18 17:52 HH [email or web address]) Sensation Evaluation Gross Sensation Gross Sensation Right LE Impaired Sensation Description Numbness Dermatome Impairments S1 Deep Tendon Reflex & Clonus Assessment Deep Tendon Reflex Bilateral Achilles Deep Tendon Reflex 1+ Diminished Bilateral Patellar Deep Tendon Reflex 2+ Normal PT-OP-J Posture/Palpation/Skin Start: 10/01/18 12:40 Freq: Status: Active Protocol: Document 10/01/18 13:45 HH (Rec: 10/01/18 17:52 [email or web address]) Palpation Assessment Location lumbar region Palpation Findings Soft Tissue Tightness Muscle Guarding Tenderness Palpation Details significant tenderness to pressure at lumbar spine L1-l5 and paraspinals. PT-OP-K Range of Motion Start: 10/01/18 12:40 Freq: Status: Active Protocol: Document 10/01/18 13:45 HH (Rec: 10/01/18 17:52 [email or web address]) Lumbar Spine Range of Motion Lumbar Spine Percentage Testing Position Sitting Flexion 40 Extension 20 Rotation Left 50 Rotation Right 30 ROM Limitations Soft Tissue Tightness Muscle Weakness Pain Comments increase in pain with end range for all directions (ext > flexion> rotation) Ankle and Foot Goniometric Range of Motion Ankle and Foot Right Active Ankle/Foot ROM WFL No Testing Position Supine Plantarflexion 50 Ankle and Foot ROM Limitations ROM Limitations Muscle Weakness Muscle Tone Comments R DF = at negative 10 degrees PT-OP-M Strength Start: 10/01/18 12:40 Freq: Status: Active Protocol: Document 10/01/18 13:45 HH (Rec: 10/01/18 17:52 [email or web address]) Hip Strength Hip Manual Muscle Testing Right Flexion (L2) 4 Good Extension (S1) 4- Good- Abduction 4- Good- Adduction 4 Good Left Flexion (L2) 4 Good Extension (S1) 4 Good Abduction 4 Good Adduction 4 Good Knee Strength Knee Manual Muscle Testing Right Flexion (S2) 3+ Fair+ Extension (L3) 4+ Good+ Left Flexion (S2) 3+ Fair+ Extension (L3) 4+ Good+ Ankle/Foot Strength Ankle and Foot Manual Muscle Testing Right Dorsiflexion (L4) 0 Zero Plantarflexion (S1) 4 Good Inversion 1 Trace Eversion (S1) 3- Fair- Left Dorsiflexion (L4) 4+ Good+ Plantarflexion (S1) 4+ Good+ Inversion 4+ Good+ Eversion (S1) 4+ Good+ PT-OP-Q Treatments Start: 10/01/18 12:40 Freq: Status: Active Protocol: Document 11/03/18 14:29 LRN (Rec: 11/03/18 16:39 LRN [id number]) Therapeutic Exercises Supine Exercises 1 Supine Exercise Name hamstring stretch Side bilateral Reps/Minutes 5' Comments extra time taken for review Sidelying Exercises 1 Sidelying Exercise Name QL stretch Side bilateral Reps/Minutes 6' Comments Extra time taken for education Standing Exercises L QL stretch Standing Exercise Name L QL stretch Side left Reps/Minutes 3' standing hip flexion Side bilateral Equipment Used holding doorjamb Reps/Minutes 6' Comments cues to prevent trunk lateral flexion Self-Care/Home Management Treatment Education Other Education Discussed at length process for pt to obtain a new R AFO and provided the pt with informational resource for possible orthotists to contact to discuss costs, materials, ect... Issued referral obtained from for AFO. PT-OP-T Assessment and Plan Start: 10/01/18 12:40 Freq: Status: Active Protocol: Document 11/03/18 14:29 LRN (Rec: 11/03/18 15:13 LRN [id number]) Physical Therapy Assessment Assessment Summary Assessment Pt had fairly good understanding of her HEP. Pt with chronic LB, R hip pain, generalized muscle weakness, impaired activity tolerance and impaired gait. She is to discuss with the orthotists costs, and material types. Pt orthotic referral will need specific information of positioning to whichever powerhouse helper the pt decides to make her orthotic. Physical Therapy Plan Frequency and Duration Frequency of Treatment 2x/Week Duration of Treatment 12 Plan of Care Start Date 10/01/18 Plan of Care End Date 01/01/19 Next Visit Focus/Plan Next Note Type Treatment Note Next Visit Plan Provide information of type of orthotic recommended by Radhika Navarro PT to the powerhouse helper of choice by the patient. Check LLD and provide heel lift if possible, trunk ROM , R hip flexion strengthening balance training as daphney.
== END 2018-11-04 12:31 ==
LOC: PHYS 14:15
PROVIDERS: Family Provider Chiropractor; PCP Physician Assistant; Visit Provider Physical Medicine & Rehabilitation
DX: M16.11 Unilateral primary osteoarthritis, right hip (principal); M96.1 Postlaminectomy syndrome, not elsewhere classified; M48.062 Spinal stenosis, lumbar region with neurogenic claudication
CPT/HCPCS: 97110; 97140; 97163; 97535

== ENCOUNTER → 2018-12-16 11:16 | Outpatient (CLI) | payer MEDICARE, OTHER, SELFPAY ==
--- NOTE | 2018-12-16 | DI.MRI.S_ITS ---
PROCEDURE: MR THORACIC SPINE WO CON INDICATIONS: Postlaminectomy syndrome TECHNIQUE: Noncontrast sagittal T1 spine echo and T2 fast spin echo, sagittal STIR, axial T1 and T2 fast spin echo through the thoracic spine. COMPARISON: [facility], XA, PAIN L INTERLAMINAR/CAUDAL INJ, 07/08/2018, 8:01. FINDINGS: Image quality: Excellent. Alignment and Curvature: There is trace T11-T12 and T12-L1 retrolisthesis. Bone Marrow: Reactive endplate change is noted adjacent to the T11-T12 and T12-L1 discs. No acute vertebral body compression fractures. Spinal Cord: Visualized spinal cord is normal in size and signal. Paraspinous Soft Tissues: No paravertebral masses. Miscellaneous: Moderate T5-T6, T6-T7, T7-T8, T8-T9, T9-T10, T10-T11, T11-T12 and T12-L1 degenerative disc disease. Small left central T5-T6 disc protrusion. Small right central T6-T7 disc protrusion. Small central T7-T8 disc protrusion. Small right central T11-T12 disc protrusion. Moderate T12-L1 diffuse disc bulge. Moderate right T3-T4 facet hypertrophy. Mild T3-T4 central canal narrowing secondary to facet hypertrophy. No significant neural foraminal narrowing. No neural compression. IMPRESSION: 1. Multilevel degenerative disc disease. 2. Moderate right T3-T4 facet arthropathy. 3. Mild T3-T4 central canal narrowing. 4. No significant neural foraminal narrowing. 5. No neural compression. 6. No vertebral body compression fractures. Dictated by: Joy Brenner MD, PhD on 12/16/2018 at 16:52 Approved by: Joy Brenner MD, PhD on 12/16/2018 at 16:57
== END ==
PROVIDERS: Family Provider Internal Medicine; PCP Internal Medicine; Visit Provider Physical Medicine & Rehabilitation
DX: M96.1 Postlaminectomy syndrome, not elsewhere classified (principal)
CPT/HCPCS: 72146

== ENCOUNTER → 2019-06-10 12:03 | Outpatient (CLI) | payer MEDICARE, OTHER, SELFPAY ==
--- NOTE | 2019-06-10 | DI.MG.S_ITS ---
BILATERAL DIGITAL SCREENING MAMMOGRAM 3D/2D WITH CAD POST LUMPECTOMY: 06/10/2019 CLINICAL: Routine screening. Personal history of right breast cancer. Family history of breast cancer. Comparison is made to exams dated: 03/06/2018 mammogram, 12/11/2016 mammogram, and 11/30/2015 mammogram - [facility]. The tissue of both breasts is heterogeneously dense. This may lower the sensitivity of mammography. Current study was also evaluated with a Computer Aided Detection (CAD) system. There is a possible asymmetry in the right breast posterior depth superior region seen on the mediolateral oblique view only. This is more prominent and correlates with surgery. There is a post-surgical scar associated with the asymmetry. No other significant masses, calcifications, or other findings are seen in either breast. IMPRESSION: INCOMPLETE: NEEDS ADDITIONAL IMAGING EVALUATION The possible asymmetry in the right breast likely represents sequela of previous surgery and is indeterminate. Additional views with possible ultrasound are recommended. This exam was interpreted at Station ID: [id number]. NOTE: For mammograms, a report in lay terms will be sent to the patient. Approximately 15% of breast malignancies will not be visualized mammographically. In the management of a palpable breast mass, a negative mammogram must not discourage biopsy of a clinically suspicious lesion. Electronically Signed By: Bakari Lu M.D. aty/:06/10/2019 19:27:27 copy to: LUOISA MAIER M.D., ph: [phone], fax: [phone] letter sent: Additional Imaging Needed ACR BI-RADS Category 0: Incomplete [id number]
== END ==
PROVIDERS: PCP Internal Medicine; Referring Provider Surgery; Visit Provider Surgery
DX: Z12.31 Encounter for screening mammogram for malignant neoplasm of breast (principal); Z85.3 Personal history of malignant neoplasm of breast; Z80.3 Family history of malignant neoplasm of breast
CPT/HCPCS: 77063; 77067

== ENCOUNTER 2019-06-24 14:30 | Outpatient (RCR) | payer MEDICARE, OTHER, SELFPAY ==
--- NOTE | 2019-06-17 18:39 | PT.OIE ---
Current Diagnoses Strain of muscle, fascia and tendon of lower back, subsequent encounter (06/17/19) Visit Care Team Role Provider Type Huma Terrazas MD Primary Care Provider Non-Staff Specialty: Medical Address: [address] [place] [address], [id number] Email: Ajay Tan MD Attending Provider Physician Referring Provider Specialty: Orthopedic Surgery Address: [address] [place] [address], [id number] Email: [email or web address] Physical Therapy Initial Evaluation PT-OP-A Visit Information Start: 06/17/19 11:50 Freq: Status: Active Protocol: Document 06/17/19 14:35 HH (Rec: 06/17/19 17:24 HH [email or web address]) Out-Patient Physical Therapy Visit Information Visit Information Visit Type Initial Evaluation Visit Start Time 14:35 Visit Stop Time 15:30 Total Visit Minutes 40 Visit Number 05/10 Number of NEWSPAPER PHOTOGRAPHER Visits 0 Evaluation Information Evaluation Date 06/17/19 Precautions Precautions High fall risks fibromyalgia pt with spinal stimulation devic at R low back PT-OP-B Current Condition Start: 06/17/19 11:50 Freq: Status: Active Protocol: Document 06/17/19 14:35 HH (Rec: 06/17/19 17:24 HH [email or web address]) Current Condition History of Current Condition Onset Date since 1971 Current Complaints Chronic LBP, R hip pain, poor balance and impaired gait History of Current Condition Pt presents to clinic with chronic LBP and R hip pain, decreased balance and overall weakness andimpairment gait. Pt reports her LBP started since 1970s and received L4-L5 laminectomy in 1971 which resulted Cauda Equina syndrome and R foot drop, along with with persistent back pain. She had 2nd laminectomy in and started to use R AFO since then. A spinal stimulation was recently placed at her R side of lumbar region in February, for her ongoing sciatica and low back pain. Pt reports her pain has been getting better and her remote application on the phone is able modify the EM wave to manage her pain. However, she still has dull residual pain which gets worse with sitting/ standing, especially sitting in a rigid chair at a right angle. Walking uneven surface also very difficulty to her d/ t poor balance. Pt likes to sit in a recliner which tends to help her pain. She currently able to walk 0.25 mile x 4/5 times a week. Pt reports she falls around twice a month but havent had any significant injury. 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 Pt currently takes oxycodone and multiple medication to manage her depression. Prior Treatments and Tests Pt had 3 PT visits with this PT last summer but was discontinued d/t PT's sick leave. Treatment Goals Patient/Caregiver Goals 1. To be able to amb up to 1 mile 4-5times a week with minimal discomfort 2. 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 OP-PT Pain Assessment Location Lower Back Intensity 5 Scale Used Numeric (1 - 10) Description Dull Frequency Constant Pain Aggravating Factors Activity,Standing,Sitting, Walking,Lifting Pain Alleviating Factors Inactivity,Lying Supine PT-OP-D Balance Start: 06/17/19 11:50 Freq: Status: Active Protocol: Document 06/17/19 14:35 HH (Rec: 06/17/19 17:24 [email or web address]) Balance Tests Single Limb Standing Single Limb- Right 0 Single Limb- Left 2 Other Other Balance Tests Performed SLS test shows excessive lateral trunk movements PT-OP-E Functional Tests Start: 06/17/19 11:50 Freq: Status: Active Protocol: Document 06/17/19 14:35 HH (Rec: 06/17/19 17:24 [email or web address]) Functional Tests Five Times Sit to Stand Test Score 17s Comments pt needs trunk rocking motion to assist PT-OP-G Mobility & Gait Start: 06/17/19 11:50 Freq: Status: Active Protocol: Document 06/17/19 14:35 HH (Rec: 06/17/19 17:24 [email or web address]) OP Gait Assessment Gait Gait Assistance Required: Independent Gait Deviations General Gait Pattern Decreased Stride Length, Decreased Feet Clearance, Lateral Trunk Lean Factors Limiting Gait Function Factors Limiting Gait Function Abnormal Tonal Influences, Decreased Activity Tolerance, Decreased Sensation,Decreased Strength,Limited Range of Motion,Pain,Poor Balance,Poor Safety Awareness Comments Gait Comments Wobbly and steppage gait with RAFO due to R foot drop. Unable to perform heel strike. Stair Climbing Evaluation Technique/Endurance Stair Climbing Direction Ascend and Descend Stair Climbing Technique Step Over Step Number of Steps Climbed 4 Stair Climbing Set # Repetitions (reps) 2 PT-OP-H Neuro Start: 06/17/19 11:50 Freq: Status: Active Protocol: Document 06/17/19 14:35 HH (Rec: 06/17/19 17:24 [email or web address]) Sensation Evaluation Gross Sensation Gross Sensation Right LE Impaired Sensation Description Numbness Dermatome Impairments S1 Deep Tendon Reflex & Clonus Assessment Deep Tendon Reflex Bilateral Achilles Deep Tendon Reflex 1+ Diminished Bilateral Patellar Deep Tendon Reflex 2+ Normal PT-OP-J Posture/Palpation/Skin Start: 06/17/19 11:50 Freq: Status: Active Protocol: Document 06/17/19 14:35 HH (Rec: 06/17/19 17:24 [email or web address]) Palpation Assessment Location lumbar region Palpation Findings Soft Tissue Tightness,Muscle Guarding,Tenderness Palpation Details significant tenderness to pressure at lumbar region L1- L5 L>R PT-OP-K Range of Motion Start: 06/17/19 11:50 Freq: Status: Active Protocol: Document 06/17/19 14:35 HH (Rec: 06/17/19 17:24 [email or web address]) Lumbar Spine Range of Motion Lumbar Spine Percentage Testing Position Sitting Flexion 40 Extension 20 Rotation Left 50 Rotation Right 30 ROM Limitations Soft Tissue Tightness,Muscle Weakness Ankle and Foot Goniometric Range of Motion Ankle and Foot Right Active Ankle/Foot ROM WFL No Testing Position Supine Plantarflexion 50 Ankle and Foot ROM Limitations ROM Limitations Muscle Weakness Comments R DF= -ve 10 degrees PT-OP-M Strength Start: 06/17/19 11:50 Freq: Status: Active Protocol: Document 06/17/19 14:35 (Rec: 06/17/19 17:24 HH [email or web address]) Hip Strength Hip Manual Muscle Testing Left Flexion (L2) 4 Good Extension (S1) 4 Good Abduction 4 Good Adduction 4 Good Right Flexion (L2) 4- Good- Extension (S1) 3+ Fair+ Abduction 4- Good- Adduction 4 Good Knee Strength Knee Manual Muscle Testing Left Flexion (S2) 4+ Good+ Extension (L3) 4+ Good+ Right Flexion (S2) 4 Good Extension (L3) 4+ Good+ Ankle/Foot Strength Ankle and Foot Manual Muscle Testing Right Dorsiflexion (L4) 0 Zero Plantarflexion (S1) 4 Good Inversion 1 Trace Eversion (S1) 3- Fair- Left Dorsiflexion (L4) 4+ Good+ Plantarflexion (S1) 4+ Good+ Inversion 4+ Good+ Eversion (S1) 4+ Good+ PT-OP-T Assessment and Plan Start: 06/17/19 11:50 Freq: Status: Active Protocol: Document 06/17/19 14:35 (Rec: 06/17/19 18:39 [email or web address]) Physical Therapy Assessment Goals sit/stand Impairment unable to daphney sit/excelsior machine operator one position >10 mins Short Term Goal (STG) Pt will be able to sit/ excelsior machine operator one position > 15 mins with LBP no more than 5/10 STG Duration 5 weeks [facility] Goal (LTG) Pt will be able to sit/ excelsior machine operator one position > 20 mins with LBP no more than 5/10 LTG Duration 10 weeks floor recovery Impairment unable to recover from floor independently Foreign Exchange Student Coordinator Goal (LTG) pt will be able to recover from floor independently in a safe manner LTG Duration 10 weeks activity tolerance Impairment unable to daphney walking >0.25 miles at a time Short Term Goal (STG) pt will be able to amb up to 1 /2 mile 4/5 times a week with LBP no more than 5/10 STG Duration 5 weeks Foreign Exchange Student Coordinator Goal (LTG) pt will be able to amb up to a mile 4/5 times a week with LBP no more than 3/10 LTG Duration 10 weeks Assessment Summary Assessment This is a high complexity evaluation for this 79yo female presented to clinic with chronic LBP, generalized muscle weakness and poor balance, along with complicated past medical history and high fall risks. Pt currently has spinal stimulator in place for pain management which significant improves her sciatica pain. However, pt cont to have residual pain that want to be addressed. Upon assessment, pt has very poor single leg balance bilaterally and presents with a wobbly steppage gait d/t her R foot weakness d/t nerve injury, which put pt into very high fall risks. Pt often lost her balance during turns and movement initiation. And her gait also has to require constant R lateral trunk flexion to propel RLE which possibly magnifies her back pain. In addition, recommended pt to acquire new R AFO if possible since her current one 's lateral spring is broken. 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 Physical Therapy Plan Frequency and Duration Frequency of Treatment 2x/Week Duration of Treatment 10 weeks Plan of Care Start Date 06/17/19 Plan of Care End Date 08/31/19 Therapeutic Interventions Therapeutic Interventions Aquatic Therapy,Balance Training,Gait Training,Home Exercise Program,Joint Mobilizations,Manual Therapy, Neuromuscular Re-education, Patient/Caregiver Education, Self-Care/Home Management,Soft Tissue Mobilization,Taping, Therapeutic Activities, Therapeutic Exercises Modalities Cold Pack/Ice Massage,Electric Stimulation,Hot Packs, Infrared Therapy,Traction- Mechanical,Ultrasound Next Visit Focus/Plan Next Note Type Treatment Note Next Visit Plan assess TUG, 6MWT, [place] manual therapy on low back for relaxation hip stabilizers strengthening hip flexion , abduction and ext strengthening consult pattern drum maker
--- NOTE | 2019-06-17 18:40 | PT.OPPOC ---
Physical, Occupational & Speech Therapy At [facility] Current Diagnoses Strain of muscle, fascia and tendon of lower back, subsequent encounter (06/17/19) Visit Care Team Role Provider Type Huma Terrazas MD Primary Care Provider Non-Staff Specialty: Medical Address: [address] [place] [address], [phone] Email: Ajay Tan MD Attending Provider Physician Referring Provider Specialty: Orthopedic Surgery Address: [address] [place] [address], [id number] Email: [email or web address] Plan Of Care PT-OP-T Assessment and Plan Start: 06/17/19 11:50 Freq: Status: Active Protocol: Document 06/17/19 14:35 HH (Rec: 06/17/19 18:39 HH [email or web address]) Physical Therapy Assessment Goals sit/stand Impairment unable to daphney sit/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 position >10 mins Short Term Goal (STG) Pt will be able to sit/ 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 position > 15 mins with LBP no more than 5/10 STG Duration 5 weeks Halfway Goal (LTG) Pt will be able to sit/ 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 position > 20 mins with LBP no more than 5/10 LTG Duration 10 weeks floor recovery Impairment unable to recover from floor independently Halfway Goal (LTG) pt will be able to recover from floor independently in a safe manner LTG Duration 10 weeks activity tolerance Impairment unable to daphney walking >0.25 miles at a time Short Term Goal (STG) pt will be able to amb up to 1 /2 mile 4/5 times a week with LBP no more than 5/10 STG Duration 5 weeks 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 Pt currently has spinal stimulator in place for pain management which significant improves her sciatica pain. However, pt cont to have residual pain that want to be addressed. Upon assessment, pt has very poor single leg balance bilaterally and presents with a wobbly steppage gait d/t her R foot weakness d/t nerve injury, which put pt into very high fall risks. Pt often lost her balance during turns and movement initiation. And her gait also has to require constant R lateral trunk flexion to propel RLE which possibly magnifies her back pain. In addition, recommended pt to acquire new R AFO if possible since her current one 's lateral spring is broken. 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 Physical Therapy Plan Frequency and Duration Frequency of Treatment 2x/Week Duration of Treatment 10 weeks Plan of Care Start Date 06/17/19 Plan of Care End Date 08/31/19 Therapeutic Interventions Therapeutic Interventions Aquatic Therapy,Balance Training,Gait Training,Home Exercise Program,Joint Mobilizations,Manual Therapy, Neuromuscular Re-education, Patient/Caregiver Education, Self-Care/Home Management,Soft Tissue Mobilization,Taping, Therapeutic Activities, Therapeutic Exercises Modalities Cold Pack/Ice Massage,Electric Stimulation,Hot Packs, Infrared Therapy,Traction- Mechanical,Ultrasound Next Visit Focus/Plan Next Note Type Treatment Note Next Visit Plan assess TUG, 6MWT, [place] manual therapy on low back for relaxation hip stabilizers strengthening hip flexion , abduction and ext strengthening consult wrapper opener Plan of Care Dates Plan of Care Start Date 06/17/19 Plan of Care End Date 08/31/19 Electronically Signed by: Melanie Mcdowell PT 06/17/19 2245 Please Sign and Return: I have reviewed this Plan of Care and certify that the skilled therapy services above are required to meet the patient?s needs. Physician Signature Date Printed Name and Credentials Clinical Instructor Signature Printed Name and Credentials
--- NOTE | 2019-06-24 16:25 | PT.OTN ---
Current Diagnoses Strain of muscle, fascia and tendon of lower back, subsequent encounter (06/24/19) Physical Therapy Treatment Note PT-OP-A Visit Information Start: 06/17/19 11:50 Freq: Status: Active Protocol: Document 06/24/19 14:31 HH (Rec: 06/24/19 16:24 HH [email or web address]) Out-Patient Physical Therapy Visit Information Visit Information Visit Type Treatment Note Visit Start Time 14:31 Visit Stop Time 15:15 Total Visit Minutes 44 Visit Number 06/10 Number of LABEL STAMPER Visits 0 PT-OP-B Current Condition Start: 06/17/19 11:50 Freq: Status: Active Protocol: Document 06/17/19 14:35 HH (Rec: 06/17/19 17:24 HH [email or web address]) Current Condition History of Current Condition Onset Date since 1971 Current Complaints Chronic LBP, R hip pain, poor balance and impaired gait History of Current Condition Pt presents to clinic with chronic LBP and R hip pain, decreased balance and overall weakness andimpairment gait. 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 She had 2nd laminectomy in and started to use R AFO since then. A spinal stimulation was recently placed at her R side of lumbar region in February, for her ongoing sciatica and low back pain. Pt reports her pain has been getting better and her remote application on the phone is able modify the EM wave to manage her pain. However, she still has dull residual pain which gets worse with sitting/ standing, especially sitting in a rigid chair at a right angle. Walking uneven surface also very difficulty to her d/ t poor balance. Pt likes to sit in a recliner which tends to help her pain. She currently able to walk 0.25 mile x 4/5 times a week. Pt reports she falls around twice a month but havent had any significant injury. 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 Pt currently takes oxycodone and multiple medication to manage her depression. Prior Treatments and Tests Pt had 3 PT visits with this PT last summer but was discontinued d/t PT's sick leave. Treatment Goals Patient/Caregiver Goals 1. To be able to amb up to 1 mile 4-5times a week with minimal discomfort 2. 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 Prior Functional Status Baseline Function- Gait R foot drop without AFO Current Functional Impairments (Reported) Functional Limitations- Other multiple falls in the farm due to uneven surface Personal Factors Other Personal Factors That May Effect oxycodone for pain management Therapy/Recovery depressionfibromyalgia PT-OP-C Subjective Start: 06/17/19 11:50 Freq: Status: Active Protocol: Document 06/24/19 14:31 HH (Rec: 06/24/19 16:24 [email or web address]) OP-PT Subjective Patient Comments Patient Comments No c/o PT-OP-D Balance Start: 06/17/19 11:50 Freq: Status: Active Protocol: Document 06/17/19 14:35 HH (Rec: 06/17/19 17:24 [email or web address]) Balance Tests Single Limb Standing Single Limb- Right 0 Single Limb- Left 2 Other Other Balance Tests Performed SLS test shows excessive lateral trunk movements PT-OP-E Functional Tests Start: 06/17/19 11:50 Freq: Status: Active Protocol: Document 06/24/19 14:31 HH (Rec: 06/24/19 16:24 [email or web address]) Functional Tests Dynamic Gait Index (DGI) Score 15 DGI Impairment Rating 20 to <40% Impaired (Score 15- 19) Timed Up and Go (TUG) Score 10s TUG Impairment Rating 0% Impaired (Score 10) PT-OP-G Mobility & Gait Start: 06/17/19 11:50 Freq: Status: Active Protocol: Document 06/17/19 14:35 HH (Rec: 06/17/19 17:24 [email or web address]) OP Gait Assessment Gait Gait Assistance Required: Independent Gait Deviations General Gait Pattern Decreased Stride Length, Decreased Feet Clearance, Lateral Trunk Lean Factors Limiting Gait Function Factors Limiting Gait Function Abnormal Tonal Influences, Decreased Activity Tolerance, Decreased Sensation,Decreased Strength,Limited Range of Motion,Pain,Poor Balance,Poor Safety Awareness Comments Gait Comments Wobbly and steppage gait with RAFO due to R foot drop. Unable to perform heel strike. Stair Climbing Evaluation Technique/Endurance Stair Climbing Direction Ascend and Descend Stair Climbing Technique Step Over Step Number of Steps Climbed 4 Stair Climbing Set # Repetitions (reps) 2 PT-OP-H Neuro Start: 06/17/19 11:50 Freq: Status: Active Protocol: Document 06/17/19 14:35 HH (Rec: 06/17/19 17:24 [email or web address]) Sensation Evaluation Gross Sensation Gross Sensation Right LE Impaired Sensation Description Numbness Dermatome Impairments S1 Deep Tendon Reflex & Clonus Assessment Deep Tendon Reflex Bilateral Achilles Deep Tendon Reflex 1+ Diminished Bilateral Patellar Deep Tendon Reflex 2+ Normal PT-OP-J Posture/Palpation/Skin Start: 06/17/19 11:50 Freq: Status: Active Protocol: Document 06/17/19 14:35 HH (Rec: 06/17/19 17:24 [email or web address]) Palpation Assessment Location lumbar region Palpation Findings Soft Tissue Tightness,Muscle Guarding,Tenderness Palpation Details significant tenderness to pressure at lumbar region L1- L5 L>R PT-OP-K Range of Motion Start: 06/17/19 11:50 Freq: Status: Active Protocol: Document 06/17/19 14:35 (Rec: 06/17/19 17:24 [email or web address]) Lumbar Spine Range of Motion Lumbar Spine Percentage Testing Position Sitting Flexion 40 Extension 20 Rotation Left 50 Rotation Right 30 ROM Limitations Soft Tissue Tightness,Muscle Weakness Ankle and Foot Goniometric Range of Motion Ankle and Foot Right Active Ankle/Foot ROM WFL No Testing Position Supine Plantarflexion 50 Ankle and Foot ROM Limitations ROM Limitations Muscle Weakness Comments R DF= -ve 10 degrees PT-OP-M Strength Start: 06/17/19 11:50 Freq: Status: Active Protocol: Document 06/17/19 14:35 (Rec: 06/17/19 17:24 [email or web address]) Hip Strength Hip Manual Muscle Testing Left Flexion (L2) 4 Good Extension (S1) 4 Good Abduction 4 Good Adduction 4 Good Right Flexion (L2) 4- Good- Extension (S1) 3+ Fair+ Abduction 4- Good- Adduction 4 Good Knee Strength Knee Manual Muscle Testing Left Flexion (S2) 4+ Good+ Extension (L3) 4+ Good+ Right Flexion (S2) 4 Good Extension (L3) 4+ Good+ Ankle/Foot Strength Ankle and Foot Manual Muscle Testing Right Dorsiflexion (L4) 0 Zero Plantarflexion (S1) 4 Good Inversion 1 Trace Eversion (S1) 3- Fair- Left Dorsiflexion (L4) 4+ Good+ Plantarflexion (S1) 4+ Good+ Inversion 4+ Good+ Eversion (S1) 4+ Good+ PT-OP-Q Treatments Start: 06/17/19 11:50 Freq: Status: Active Protocol: Document 06/24/19 14:31 (Rec: 06/24/19 16:24 [email or web address]) Gym Equipment Shuttle Balance blue Reps/Duration 10 mins Comments static stance w CGA unable to attempt red color Therapeutic Exercises Supine Exercises hip bridge Supine Exercise Name with hip abd Side bilateral Resistance yellow band Reps/Minutes 12 x 2 hip city manager Supine Exercise Name hip ER Side bilateral Resistance yellow band Reps/Minutes 12 x 2 Standing Exercises marching in place Standing Exercise Name next to support Side bilateral Reps/Minutes 10 x2 Comments pt often lost balance and needed cues to remind her to stay close to bar. PT-OP-T Assessment and Plan Start: 06/17/19 11:50 Freq: Status: Active Protocol: Document 06/24/19 14:31 (Rec: 06/24/19 16:24 [email or web address]) Physical Therapy Assessment Goals DGI Impairment pt scores 15/24 for DGI Short Term Goal (STG) Pt will score >18 for DGI to improve her overall balance STG Duration 5 weeks Armature Inspector Goal (LTG) pt will score >20 for DGI to improve her balance and reduce fall risks LTG Duration 10 weeks sit/stand Impairment unable to daphney sit/repulping supervisor one position >10 mins Short Term Goal (STG) Pt will be able to sit/ repulping supervisor one position > 15 mins with LBP no more than 5/10 STG Duration 5 weeks Armature Inspector Goal (LTG) Pt will be able to sit/ repulping supervisor one position > 20 mins with LBP no more than 5/10 LTG Duration 10 weeks floor recovery Impairment unable to recover from floor independently Armature Inspector Goal (LTG) pt will be able to recover from floor independently in a safe manner LTG Duration 10 weeks activity tolerance Impairment unable to daphney walking >0.25 miles at a time Short Term Goal (STG) pt will be able to amb up to 1 /2 mile 4/5 times a week with LBP no more than 5/10 STG Duration 5 weeks Usp Goal (LTG) pt will be able to amb up to a mile 4/5 times a week with LBP no more than 3/10 LTG Duration 10 weeks Assessment Summary Assessment Further assessment performed today. TUG =10 s and DGI= only. Pt often lost balance during turns and gait with head turns. Pt overall show close to symmetrical hip and knee strength. However, noticed pt with poor balance in general and present somewhat ataxic. 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 Physical Therapy Plan Next Visit Focus/Plan Next Note Type Treatment Note Next Visit Plan manual therapy on low back for relaxation if needed hip stabilizers strengthening ankle strategy balancing ex overall balance exercises.
--- NOTE | 2020-01-12 11:05 | PT.OPDS ---
Current Diagnoses Foot drop, right foot (06/24/19) Postlaminectomy syndrome, not elsewhere classified (06/24/19) Strain of muscle, fascia and tendon of lower back, subsequent encounter (06/24/19) Visit Care Team Role Provider Type Huma Terrazas MD Primary Care Provider Non-Staff Specialty: Medical Address: [address] [place] [address], [phone] Email: Ajay Tan MD Attending Provider Physician Referring Provider Specialty: Orthopedic Surgery Address: [address] [place] [address], [phone] Email: [email or web address] Visit Number Visit Number 06/10 Discharge Summary PT-OP-T Assessment and Plan Start: 06/17/19 11:50 Freq: Status: Active Protocol: Document 01/12/20 11:05 (Rec: 01/12/20 11:05 [email or web address]) Physical Therapy Plan Discharge Physical Therapy Discharge Comments Patient did not return call after clinic re-opening > 30+ days. DC from PT today
== END 2020-02-11 07:51 ==
LOC: PHYS 14:30
PROVIDERS: PCP Internal Medicine; Referring Provider Orthopaedic Surgery; Visit Provider Orthopaedic Surgery
DX: S39.012D Strain of muscle, fascia and tendon of lower back, subsequent encounter (principal); M96.1 Postlaminectomy syndrome, not elsewhere classified; M21.371 Foot drop, right foot
CPT/HCPCS: 97110; 97163

== ENCOUNTER → 2019-06-25 14:34 | Outpatient (CLI) | payer MEDICARE, OTHER, SELFPAY ==
--- NOTE | 2019-06-25 | DI.MG.S_ITS ---
UNILATERAL RIGHT DIGITAL DIAGNOSTIC MAMMOGRAM 3D/2D WITH ADDITIONAL VIEWS: 06/25/2019 CLINICAL: Additional evaluation requested from prior study. Comparison is made to exams dated: 06/10/2019 mammogram, 03/06/2018 mammogram, 12/11/2016 mammogram, 11/30/2015 mammogram - [facility], and 10/20/2014 mammogram - [facility]. The tissue of right breast is heterogeneously dense. This may lower the sensitivity of mammography. Asymmetry in the right breast posterior depth superior region seen on the mediolateral oblique view only is not seen in additional views. Post surgical findings in the upper outer right breast. No other significant masses or calcifications are seen in the breast. IMPRESSION: Possible asymmetry in the right breast is not seen on additional views and is most consistent with overlapping fibroglandular tissue or scaring and is benign. There is no mammographic evidence of malignancy. Return to annual mammogram screening schedule is recommended. This exam was interpreted at Station ID: [id number]. NOTE: For mammograms, a report in lay terms will be sent to the patient. Approximately 15% of breast malignancies will not be visualized mammographically. In the management of a palpable breast mass, a negative mammogram must not discourage biopsy of a clinically suspicious lesion. Electronically Signed By: Francesco Dickinson M.D. slc/:06/25/2019 15:13:55 copy to: LOUISA MAIER M.D., ph: [phone], fax: [phone] letter sent: Normal Exam ACR BI-RADS Category 2: Benign Finding(s) 3342F
== END ==
PROVIDERS: PCP Internal Medicine; Referring Provider Surgery; Visit Provider Surgery
DX: R92.8 Other abnormal and inconclusive findings on diagnostic imaging of breast (principal)
CPT/HCPCS: 77065; G0279

== ENCOUNTER 2020-05-27 14:03 | Emergency (ER) | payer MEDICARE, OTHER, SELFPAY ==
[2020-05-27] VITALS (10 sets, daily range): BP systolic 122–140; BP diastolic 57–70; PULSE 73–81; RESP 14–35; TEMP 37.4; O2SAT 97–100; BMI 24.3
--- NOTE | 2020-05-27 14:16 | DI.RAD.S_ITS ---
PROCEDURE: XR CHEST 1V INDICATIONS: chest pain TECHNIQUE: One view of the chest was acquired. COMPARISON: None. FINDINGS: Surgical changes and devices: Cord stimulator leads are seen projecting in mid thoracic spine level. Surgical clips are noted in right axilla. Lungs and pleura: Lungs are clear. No pleural effusions or pneumothorax. Mediastinum: Mediastinal contours appear normal. Heart size is normal. Bones and chest wall: No suspicious bony lesions. Overlying soft tissues appear unremarkable. IMPRESSION: No acute cardiopulmonary pathology. Dictated by: Ayaan Perez M.D. on 05/27/2020 at 13:44 Approved by: Ayaan Perez M.D. on 05/27/2020 at 13:44
[2020-05-27 14:30] LABS: Add Manual Diff / Slide Review NO; Basophils Absolute Auto 0 /uL (0-100); Basophils Percent Auto 0.1 % (0-2); Eosinophils Absolute Auto 0 /uL (0-450); Eosinophils Percent Auto 0.2 % (2-4); Hematocrit 38.8 % (36-46); Hemoglobin 13.4 g/dL (12.0-16.0); Lymphocytes Absolute Auto 400 /uL (1100-4500); Lymphocytes Percent Auto 3.8 % (25-40); Mean Corpuscular HGB Conc 34.6 % (30-36); Mean Corpuscular Volume 89.4 fL (80-100); Monocytes Absolute Auto 700 /uL (0-900); Monocytes Percent Auto 6.6 % (3-14); Neutrophils Absolute Auto 9100 /uL (1500-7000); Neutrophils Percent Auto 89.3 % (50-75); Platelet Count 140 X10^3/uL (150-400); Red Blood Cell Count 4.34 X10^6/uL (4.0-5.2); Red Cell Distribution Width 13.3 % (11.6-14.8); White Blood Cell Count 10.2 X10^3/uL (4.5-11.0)
[2020-05-27 14:36] LABS: Prothrombin Time 11.6 SECONDS (10.1-12.7)
[2020-05-27 14:38] LABS: PTT Partial Thromboplastin Tim 28 SECONDS (26.4-36.2)
[2020-05-27 14:40] LABS: Alanine Aminotransferase 524 IU/L (<35); Albumin 3.8 g/dL (3.5-5.0); Albumin Globulin Ratio 1.5 (1.0-2.8); Alkaline Phosphatase 124 U/L (38-126); BUN Creatinine Ratio 22.9 (6-22); Bilirubin Total 2.6 mg/dL (0.2-1.3); Blood Urea Nitrogen 16 mg/dL (7-17); Calcium 8.7 mg/dL (8.4-10.2); Carbon Dioxide 32 mmol/L (22-32); Chloride 98 mmol/L (98-107); Creatine Kinase 74 U/L (30-135); Estimated Glomerular Filt Rate > 60.0 mL/min (>60); Globulin 2.6 g/dL (1.7-4.1); Glucose 148 mg/dL (80-110); HEMOLYSIS 24 (0-50); Lipase 73 U/L (23-300); Potassium 3.6 mmol/L (3.4-5.1); Sodium 134 mmol/L (137-145); Total Protein 6.4 g/dL (6.3-8.2)
[2020-05-27 14:46] LABS: Aspartate Aminotransferase 985 IU/L (14-36)
[2020-05-27 14:51] LABS: Troponin I < 0.012 ng/mL (0.01-0.034)
--- NOTE | 2020-05-27 15:28 | ED.CHESTPAIN ---
HPI - Chest Pain <SELENA Jenkins - Last Filed: 05/27/20 17:00> General Chief Complaint: Chest Pain Stated Complaint: pain from esophagus down to stomach Time Seen by Provider: 05/27/20 15:25 Source: patient Mode of arrival: Ambulatory Limitations: no limitations History of Present Illness HPI narrative: This is a 80-year-old female, nonsmoker, who has past medical history significant for SVT with ablation surgery in , hypothyroidism, depression, fibromyalgia, chronic back pain presents to ED with chief complain of mid chest intense pain radiating down to low abdomen without associated symptoms such as nausea, vomiting, short of breath, dizziness, or cold sweats which started around midnight. Patient researched her symptoms online and thought had acid reflux and had taken banana and angel tea. After 2 hours pain had improved from 7 to 8/10 to 3 to 4/10 but constant. Patient woke up at 6:30 a.m. and since then still has the chest pain and her other aches and pains from fibromyalgia and chronic back pain. She had taken her prescription oxycodone half pill which helped the pain somewhat. She reports has been foggy mentally and increased off balance and frontal headaches. Patient denies vision change, speech difficulty, dysphagia, paralysis. She contributes her balance difficulty to history of spinal cord injury. Patient states urinary frequency, urgency, dysuria for several years. She does not smoke. She eats chocolate marijuana occasionally for pain. She denies hypertension, hyperlipidemia. She denies immediate family history of sudden cardiac or MIs. Related Data Home Medications Medication Instructions Recorded Confirmed bupropion HCl 300 mg PO QAM #0 08/07/16 08/15/18 bupropion HCl [Wellbutrin SR] 100 mg PO QAM #0 08/07/16 08/15/18 levothyroxine 137 mcg PO QDAY #0 08/07/16 08/15/18 oxycodone 5 mg PO #0 08/07/16 08/15/18 trazodone 50 mg tablet 25 mg PO BEDTIME #0 tab 06/19/18 08/15/18 Previous Rx's Medication Instructions Recorded gabapentin 100 mg capsule 100 mg PO TID #90 cap 04/04/18 celecoxib 200 mg capsule 200 mg PO DAILY #90 cap 02/15/19 Allergies Allergy/AdvReac Type Severity Reaction Status Date / Time diazepam [From VALIUM] AdvReac Intermediate Mild Rina Verified 05/27/20 14:16 gabapentin [From NEURONTIN] AdvReac Intermediate Depression; Verified 05/27/20 14:16 morning headache sertraline [From ZOLOFT] AdvReac Intermediate Depression Verified 05/27/20 14:16 Worsening Review of Systems <SELENA Jenkins - Last Filed: 05/27/20 17:00> Review of Systems Narrative: General: Denies fever, chills, fatigue, malaise, sweats. HEENT: Denies sinus pain, ear pain, sore throat, difficulty swallowing, dizziness. Respiratory: Denies dyspnea, cough, wheezing, hemoptysis, sputum. Cardiovascular: See HPI Gastrointestinal: Denies nausea, vomiting, abdominal pain, diarrhea, constipation, melena. : See HPI Musculoskeletal: See HP a Skin: Denies rash, skin lesions, or other. Neurologic: See HPI Psychiatric: No concerning psychosocial issues. 12-point review of systems is negative except for those stated above. Patient History <SELENA Jenkins - Last Filed: 05/27/20 17:00> Medical History Chronic back pain Hypothyroidism SVT (supraventricular tachycardia) Surgical History H/O prior ablation treatment Social History Smoking Status: Never smoker Smoking Status: Never smoker alcohol intake frequency: a few times a week Substance Use Type: marijuana Exam <SELENA Jenkins - Last Filed: 05/27/20 17:00> Narrative Exam Narrative: GEN: Alert, oriented x 3, thin appearing and nourished, and in no acute distress. Head: Normal cephalic, atraumatic. No scalp or temporal tenderness, palpable mass or rash. EYES: Pupils are equal, round, and reactive to light and accommodation. Extraocular muscles are intact bilaterally. There is no subconjunctival hemorrhage, exudate and sclera non-icteric. ENT: Bilateral auditory canals and tympanic membranes clear. Hearing grossly intact. Nose without bleeding, purulent discharge or deviation. Facial sinuses nontender to palpate. Mucous membrane moist, no mucosal lesion. Throat without erythema, tonsillar hypertrophy or exudate. Uvula in midline, airway patent. Neck: Trachea in midline. No JVD, non-tender without lymphadenopathy. No masses or thyroid megaly. Supple, non-tender and no meningeal signs. CARDIAC: Normal regular rate and rhythm without murmurs, gallops, or rubs. No chest wall tenderness. No peripheral edema, cyanosis or pallor. Capillary refill is less than 2 seconds. RESPIRATORY: Lungs are clear to auscultate bilaterally. No cough, wheezes, rales, or rhonchi. No stridor, respiratory distress, increase work of breathing, or accessary muscle used. ABD: Abdomen soft, nontender and non-distended. No guarding or rebound tenderness to palpate. Bowel sounds are normal in all 4 quadrants. There is no palpable masses or organomegaly. EXT: Full painless ROM of all extremities with no loss of sensation, strength, effusion or edema. SKIN: Warm, dry, normal color for patient. No erythema, lesions or rash over visible areas. BACK: Nontender without deformity or crepitance. No flank tenderness. NEUROLOGICAL: Alert and oriented to place, time and person. Sensation and motor function intact bilaterally. No facial droops, dysphasia. PSYCHIATRIC: Good judgement and reason, without hallucinations, abnormal affect or abnormal behaviors during the examination. Patient is not suicidal. Initial Vital Signs Initial Vital Signs: Vital Signs Temperature 99.3 F 05/27/20 14:10 Pulse Rate 81 05/27/20 14:10 Respiratory Rate 14 05/27/20 14:10 Blood Pressure 137/63 05/27/20 14:10 Pulse Oximetry 99 05/27/20 14:10 <Princess Casper DO - Last Filed: 05/27/20 18:53> Initial Vital Signs Initial Vital Signs: Vital Signs Temperature 99.3 F 05/27/20 14:10 Pulse Rate 81 05/27/20 14:10 Respiratory Rate 14 05/27/20 14:10 Blood Pressure 137/63 05/27/20 14:10 Pulse Oximetry 99 05/27/20 14:10 Scores <SELENA Jenkins - Last Filed: 05/27/20 17:00> GCS Roberto coma scale eye opening: Spontaneous Roberto coma scale verbal response: Orientated [place] coma scale motor response: Obey commands Roberto coma scale total score: 15 HEART Score Heart Score history: Slightly Suspicious Heart Score EKG: Non-Specific repolarization disturbance Heart Score Age: > or = 65 years old Heart Score risk factors: No known risk factors Heart Score troponin: < or = to normal limit Heart Score Total: 3 Course <Osvaldo GaliciaSELENA Slaughter - Last Filed: 05/27/20 17:00> Orders Ordered: ED Orders 05/27/20 14:15 Complete Blood Count AUTO DIFF Stat Comprehensive Metabolic Panel Stat Lipase Stat Partial Thromboplastin Time Stat Prothrombin Time INR Stat Troponin & CK Cardiac Panel Stat 05/27/20 14:16 XR chest 1V Stat EKG-12 Lead Stat 05/27/20 16:56 CT angio chest abdomen pelvis Stat 05/27/20 16:58 US abdomen limited Stat 05/27/20 17:30 Troponin I Stat Discontinued Medications Acetaminophen (Acetaminophen 325 Mg Tablet) 650 mg PO NOW ONE Stop: 05/27/20 15:59 Last Admin: 05/27/20 16:04 Dose: 650 mg Documented by: DARRICK Aspirin (Aspirin 325 Mg Tablet) 325 mg PO NOW ONE Stop: 05/27/20 18:20 Vital Signs Vital signs: Vital Signs - 8 hr 05/27/20 14:10 05/27/20 14:30 05/27/20 15:00 Temperature 99.3 F Pulse Rate 81 75 76 Respiratory Rate 14 16 Blood Pressure 137/63 124/67 126/70 Pulse Oximetry 98 98 100 05/27/20 15:30 05/27/20 16:00 05/27/20 16:30 Temperature Pulse Rate 78 73 73 Respiratory Rate 16 15 20 Blood Pressure 140/65 Pulse Oximetry 100 100 97 05/27/20 17:00 05/27/20 17:28 05/27/20 17:30 Temperature Pulse Rate 74 75 74 Respiratory Rate 17 17 15 Blood Pressure 122/57 L Pulse Oximetry 99 98 99 05/27/20 18:00 Temperature Pulse Rate 73 Respiratory Rate 35 H Blood Pressure Pulse Oximetry 99 <Princess Casper DO - Last Filed: 05/27/20 18:53> Orders Ordered: ED Orders 05/27/20 14:15 Complete Blood Count AUTO DIFF Stat Comprehensive Metabolic Panel Stat Lipase Stat Partial Thromboplastin Time Stat Prothrombin Time INR Stat Troponin & CK Cardiac Panel Stat 05/27/20 14:16 XR chest 1V Stat EKG-12 Lead Stat 05/27/20 16:56 CT angio chest abdomen pelvis Stat 05/27/20 16:58 US abdomen limited Stat 05/27/20 17:30 Troponin I Stat Discontinued Medications Acetaminophen (Acetaminophen 325 Mg Tablet) 650 mg PO NOW ONE Stop: 05/27/20 15:59 Last Admin: 05/27/20 16:04 Dose: 650 mg Documented by: DARRICK Aspirin (Aspirin 325 Mg Tablet) 325 mg PO NOW ONE Stop: 05/27/20 18:20 Vital Signs Vital signs: Vital Signs - 8 hr 05/27/20 14:10 05/27/20 14:30 05/27/20 15:00 Temperature 99.3 F Pulse Rate 81 75 76 Respiratory Rate 14 16 Blood Pressure 137/63 124/67 126/70 Pulse Oximetry 98 98 100 05/27/20 15:30 05/27/20 16:00 05/27/20 16:30 Temperature Pulse Rate 78 73 73 Respiratory Rate 16 15 20 Blood Pressure 140/65 Pulse Oximetry 100 100 97 05/27/20 17:00 05/27/20 17:28 05/27/20 17:30 Temperature Pulse Rate 74 75 74 Respiratory Rate 17 17 15 Blood Pressure 122/57 L Pulse Oximetry 99 98 99 05/27/20 18:00 Temperature Pulse Rate 73 Respiratory Rate 35 H Blood Pressure Pulse Oximetry 99 MDM - Chest Pain <Osvaldo SELENA Quinonez - Last Filed: 05/27/20 17:00> Differential Diagnosis Differential diagnosis: Likely atypical chest pain, costochondritis and other (GERD, AAA, thoracic aneurysm) Medical Records Data Attestation: I reviewed the patient's medical records. Lab Data Attestation: I reviewed the patient's lab results. Result diagrams: 05/27/20 14:15 05/27/20 14:15 Labs: Lab Results 05/27/20 05/27/20 05/27/20 Range/Units 14:15 14:15 14:15 WBC 10.2 (4.5-11.0) X10^3/uL RBC 4.34 (4.0-5.2) X10^6/uL Hgb 13.4 (12.0-16.0) g/dL Hct 38.8 (36-46) % MCV 89.4 (80-100) fL MCH 31.0 (26-34) PG MCHC 34.6 (30-36) % RDW 13.3 (11.6-14.8) % Plt Count 140 L (150-400) X10^3/uL Neut % (Auto) 89.3 H (50-75) % Lymph % (Auto) 3.8 L (25-40) % Douglas % (Auto) 6.6 (3-14) % Eos % (Auto) 0.2 L (2-4) % Baso % (Auto) 0.1 (0-2) % Neut # (Auto) 9100 H (5472-0338) /uL Lymph # (Auto) 400 L (3107-0034) /uL Douglas # (Auto) 700 (0-900) /uL Eos # (Auto) 0 (0-450) /uL Baso # (Auto) 0 (0-100) /uL PT 11.6 (10.1-12.7) SECONDS INR 1.0 (0.9-1.3) APTT 28 (26.4-36.2) SECONDS Sodium 134 L (137-145) mmol/L Potassium 3.6 (3.4-5.1) mmol/L Chloride 98 (98-107) mmol/L Carbon Dioxide 32 (22-32) mmol/L BUN 16 (7-17) mg/dL Creatinine 0.70 (0.52-1.04) mg/dL Estimated GFR > 60.0 (>60) mL/min BUN/Creatinine Ratio 22.9 H (6-22) Glucose 148 H (80-110) mg/dL Calcium 8.7 (8.4-10.2) mg/dL Total Bilirubin 2.6 H (0.2-1.3) mg/dL AST 985 H (14-36) IU/L ALT 524 H (<35) IU/L Alkaline Phosphatase 124 (38-126) U/L Total Creatine Kinase 74 (30-135) U/L CK-MB (CK-2) TNP CK-MB (CK-2) Rel Index TNP Troponin I < 0.012 (0.01-0.034) ng/mL Total Protein 6.4 (6.3-8.2) g/dL Albumin 3.8 (3.5-5.0) g/dL Globulin 2.6 (1.7-4.1) g/dL Albumin/Globulin Ratio 1.5 (1.0-2.8) Lipase 73 (23-300) U/L 05/27/20 Range/Units 17:30 WBC (4.5-11.0) X10^3/uL RBC (4.0-5.2) X10^6/uL Hgb (12.0-16.0) g/dL Hct (36-46) % MCV (80-100) fL MCH (26-34) PG MCHC (30-36) % RDW (11.6-14.8) % Plt Count (150-400) X10^3/uL Neut % (Auto) (50-75) % Lymph % (Auto) (25-40) % Douglas % (Auto) (3-14) % Eos % (Auto) (2-4) % Baso % (Auto) (0-2) % Neut # (Auto) (5190-4162) /uL Lymph # (Auto) (0798-3836) /uL Douglas # (Auto) (0-900) /uL Eos # (Auto) (0-450) /uL Baso # (Auto) (0-100) /uL PT (10.1-12.7) SECONDS INR (0.9-1.3) APTT (26.4-36.2) SECONDS Sodium (137-145) mmol/L Potassium (3.4-5.1) mmol/L Chloride (98-107) mmol/L Carbon Dioxide (22-32) mmol/L BUN (7-17) mg/dL Creatinine (0.52-1.04) mg/dL Estimated GFR (>60) mL/min BUN/Creatinine Ratio (6-22) Glucose (80-110) mg/dL Calcium (8.4-10.2) mg/dL Total Bilirubin (0.2-1.3) mg/dL AST (14-36) IU/L ALT (<35) IU/L Alkaline Phosphatase (38-126) U/L Total Creatine Kinase (30-135) U/L CK-MB (CK-2) CK-MB (CK-2) Rel Index Troponin I < 0.012 (0.01-0.034) ng/mL Total Protein (6.3-8.2) g/dL Albumin (3.5-5.0) g/dL Globulin (1.7-4.1) g/dL Albumin/Globulin Ratio (1.0-2.8) Lipase (23-300) U/L Urine Dip Bedside Urine Glucose Negative Bedside Urine Ketone - Negative Urine Specific [place] 1.010 Bedside Urine Occult Blood - Negative Bedside Urine pH 8.0 Bedside Urine Protein - Negative Bedside Urine Urobilinogen +/- 1mg Bedside Urine Nitrite - Negative Bedside Urine Leukocytes - Negative Esterase Imaging Data Chest x-ray: Radiologist's Impression: [address] [id number] ReportSigned Patient: Veronica Jasso CMR#: [id number]: 1Acct:[id number]/Sex: 80 / FDate of Service: 05/27/20Loc: EDAccession Number: [id number] Procedure: XR chest 1V Ordering Provider: Princess Casper D.O. PROCEDURE: XR CHEST 1V INDICATIONS: chest pain TECHNIQUE: One view of the chest was acquired. COMPARISON: None. FINDINGS: Surgical changes and devices: Cord stimulator leads are seen projecting in mid thoracic spine level. Surgical clips are noted in right axilla. Lungs and pleura: Lungs are clear. No pleural effusions or pneumothorax. Mediastinum: Mediastinal contours appear normal. Heart size is normal. Bones and chest wall: No suspicious bony lesions. Overlying soft tissues appear unremarkable. IMPRESSION: No acute cardiopulmonary pathology. Dictated by: Ayaan Perez M.D. on 05/27/2020 at 13:44 Approved by: Ayaan Perez M.D. on 05/27/2020 at 13:44 ECG Data Attestation: I personally reviewed and interpreted this ECG as follows: Prior ECG tracings: not available for review Interpretation: NSR with RBBB rate at 76. KS interval 186, QRS duration 132, QT/QTC 412/463. ST depression on V5, lead II, III and avF. MDM Narrative Medical decision making narrative: This is a 80 year old female who present to ED with mid chest pain radiating down to low abdomen with frontal headach, difficulty with balance and urinary symptoms. Patient reports pain has subsided now and rates as 3/10 but constant. Physical exam was unremarkable without tender to palpate in abdomen or back pain. EKG is abnormal with RBBB and ST depression on several leads. Chest x-ray without acute findings. First cardiac enzymes were negative. Liver function test AST, ALT and total bilirubin. The patient has been signed out to Dr. Casper for possible further imaging test and evaluation. <Princess Casper, DO - Last Filed: 05/27/20 18:53> Lab Data Attestation: I reviewed the patient's lab results. Labs: Lab Results 05/27/20 05/27/20 05/27/20 Range/Units 14:15 14:15 14:15 WBC 10.2 (4.5-11.0) X10^3/uL RBC 4.34 (4.0-5.2) X10^6/uL Hgb 13.4 (12.0-16.0) g/dL Hct 38.8 (36-46) % MCV 89.4 (80-100) fL MCH 31.0 (26-34) PG MCHC 34.6 (30-36) % RDW 13.3 (11.6-14.8) % Plt Count 140 L (150-400) X10^3/uL Neut % (Auto) 89.3 H (50-75) % Lymph % (Auto) 3.8 L (25-40) % Douglas % (Auto) 6.6 (3-14) % Eos % (Auto) 0.2 L (2-4) % Baso % (Auto) 0.1 (0-2) % Neut # (Auto) 9100 H (6416-5709) /uL Lymph # (Auto) 400 L (8402-5127) /uL Douglas # (Auto) 700 (0-900) /uL Eos # (Auto) 0 (0-450) /uL Baso # (Auto) 0 (0-100) /uL PT 11.6 (10.1-12.7) SECONDS INR 1.0 (0.9-1.3) APTT 28 (26.4-36.2) SECONDS Sodium 134 L (137-145) mmol/L Potassium 3.6 (3.4-5.1) mmol/L Chloride 98 (98-107) mmol/L Carbon Dioxide 32 (22-32) mmol/L BUN 16 (7-17) mg/dL Creatinine 0.70 (0.52-1.04) mg/dL Estimated GFR > 60.0 (>60) mL/min BUN/Creatinine Ratio 22.9 H (6-22) Glucose 148 H (80-110) mg/dL Calcium 8.7 (8.4-10.2) mg/dL Total Bilirubin 2.6 H (0.2-1.3) mg/dL AST 985 H (14-36) IU/L ALT 524 H (<35) IU/L Alkaline Phosphatase 124 (38-126) U/L Total Creatine Kinase 74 (30-135) U/L CK-MB (CK-2) TNP CK-MB (CK-2) Rel Index TNP Troponin I < 0.012 (0.01-0.034) ng/mL Total Protein 6.4 (6.3-8.2) g/dL Albumin 3.8 (3.5-5.0) g/dL Globulin 2.6 (1.7-4.1) g/dL Albumin/Globulin Ratio 1.5 (1.0-2.8) Lipase 73 (23-300) U/L // Range/Units 17:30 WBC (4.5-11.0) X10^3/uL RBC (4.0-5.2) X10^6/uL Hgb (12.0-16.0) g/dL Hct (36-46) % MCV (80-100) fL MCH (26-34) PG MCHC (30-36) % RDW (11.6-14.8) % Plt Count (150-400) X10^3/uL Neut % (Auto) (50-75) % Lymph % (Auto) (25-40) % Douglas % (Auto) (3-14) % Eos % (Auto) (2-4) % Baso % (Auto) (0-2) % Neut # (Auto) (4430-4421) /uL Lymph # (Auto) (6522-4166) /uL Douglas # (Auto) (0-900) /uL Eos # (Auto) (0-450) /uL Baso # (Auto) (0-100) /uL PT (10.1-12.7) SECONDS INR (0.9-1.3) APTT (26.4-36.2) SECONDS Sodium (137-145) mmol/L Potassium (3.4-5.1) mmol/L Chloride (98-107) mmol/L Carbon Dioxide (22-32) mmol/L BUN (7-17) mg/dL Creatinine (0.52-1.04) mg/dL Estimated GFR (>60) mL/min BUN/Creatinine Ratio (6-22) Glucose (80-110) mg/dL Calcium (8.4-10.2) mg/dL Total Bilirubin (0.2-1.3) mg/dL AST (14-36) IU/L ALT (<35) IU/L Alkaline Phosphatase (38-126) U/L Total Creatine Kinase (30-135) U/L CK-MB (CK-2) CK-MB (CK-2) Rel Index Troponin I < 0.012 (0.01-0.034) ng/mL Total Protein (6.3-8.2) g/dL Albumin (3.5-5.0) g/dL Globulin (1.7-4.1) g/dL Albumin/Globulin Ratio (1.0-2.8) Lipase (23-300) U/L Urine Dip Bedside Urine Glucose Negative Bedside Urine Ketone - Negative Urine Specific [place] 1.010 Bedside Urine Occult Blood - Negative Bedside Urine pH 8.0 Bedside Urine Protein - Negative Bedside Urine Urobilinogen +/- 1mg Bedside Urine Nitrite - Negative Bedside Urine Leukocytes - Negative Esterase Imaging Data CT scan - abdomen/pelvis: Radiologist's Impression: PROCEDURE: CT ANGIO CHEST ABDOMEN PELVIS INDICATIONS: chest pain radiating to pelvis TECHNIQUE: Precontrast 5 mm thick sections acquired from the lung apices to the iliac crests. After the administration of intravenous contrast, 2.5 mm thick sections again acquired from the lung apices to the iliac crests. Maximum intensity projection (MIP) oblique sagittal and coronal reformats were then acquired. For radiation dose reduction, the following was used: automated exposure control. COMPARISON: None. FINDINGS: Image quality: Excellent. AORTA: Intramural hematoma: Absent Maximum hematoma thickness: Not applicable prognosis. Focal contrast enhancement: Intramural blood pool (< 2 mm neck or imperceptible communication with aortic lumen): Absent . Ulcer-like projection (broad communication with aortic lumen > 3 mm): Absent . Dissection: Absent Kp classification: Not applicable Maximum aortic diameter: Normal Periaortic hematoma: Absent . CHEST: Lungs and pleura: No acute airspace opacities. No pleural effusions or pneumothorax. Central and peripheral airways are patent and normal in caliber. Mediastinum: Heart size is normal. No pericardial effusion. No mediastinal or hilar adenopathy by size criteria. Central pulmonary arteries are normal in size. Esophagus is normal in caliber. No hiatal hernias. Bones and chest wall: No axillary adenopathy by size criteria. Thyroid gland normal where well seen . No suspicious bony lesions. No vertebral body compression fractures. ABDOMEN: Vasculature: Celiac trunk and mesenteric arteries are patent. Renal arteries are also patent. Solid organs: Liver is normal in size and enhancement. Gallbladder normal . Biliary system is non dilated. Pancreas enhances normally. Spleen is normal in size and enhancement. No adrenal nodules. Both kidneys are normal in size and enhancement, without hydronephrosis. Peritoneum and bowel: No free fluid or air. Bowel loops are normal in caliber and wall thickness. Nodes and vessels: No retroperitoneal or mesenteric adenopathy by size criteria. Inferior vena cava is normal in morphology. Miscellaneous: No ventral hernias. Spinal electrode stimulator device and lead, and plate, noted posteriorly. PELVIS: Genitourinary: Bladder wall thickness is normal. Miscellaneous: No inguinal hernias or adenopathy. No ventral hernias. Bones: No suspicious bony lesions. No vertebral body compression fractures. IMPRESSION: No sign of dissection or aneurysm. Source of current symptoms is not seen. Dictated by: Pranav Zamarripa M.D. on 05/27/2020 at 17:24 US - abdomen: Radiologist's Impression: PROCEDURE: US ABDOMEN LIMITED INDICATIONS: elevated liver enzymes and bili TECHNIQUE: Real-time focused scanning was performed of the abdomen, with image documentation. COMPARISON: None. FINDINGS: The liver is normal in echotexture and normal in size. The gallbladder appears normal, the bile ducts are not dilated. The pancreas visualized is normal. IMPRESSION: Normal limited abdominal ultrasound, source of abnormal liver function tests is not seen. Dictated by: Pranav Zamarripa M.D. on 05/27/2020 at 17:46 ECG Data Attestation: I personally reviewed and interpreted this ECG as follows: Prior ECG tracings: available for review MDM Narrative Medical decision making narrative: I have seen evaluated patient myself. Currently sleeping. She states that she woke up at midnight had severe chest pain radiating down to her pelvis for 12 hours. She says she took some of her back pain medicine did not seem to be helping called her primary care doctor and came to the emergency department. She says she is currently chest pain free now and feels like that pain has completely gone and she ate a banana and drink angel tea as well. She has chronic ongoing back pain but she said this is something quite different. At this time concern for dissection with pain radiating from chest to pelvis off for 12 hours although it seems to be gone now and she was sleeping. Elevated liver enzymes of AST 985 in ALT 524 and bilirubin of 2.6. However she has not have right upper quadrant pain and has a negative Marquez sign. Ultrasound ordered as well. Ultrasound and CT scan do not show any abnormality she has no right upper quadrant pain. Patient admits to drinking at least 2 stouts a day but she says it depends on the day. I suspect that her liver enzymes and bilirubin is are from alcohol abuse. Except for the Tylenol she was given here. Chest pain is gone 2-troponins, at this time patient to be discharged with follow-up of liver enzymes. Discharge Plan Departure Patient Disposition: Home Clinical Impression: Atypical chest pain, Alcohol abuse Instructions: Alcohol Use Disorder, DI for Atypical Chest Pain Activity Restrictions/Additional Instructions: *You have been diagnosed with atypical chest pain elevated liver enzymes *What to do: You need to have your liver enzymes rechecked but it is likely related to your drinking. You may need further heart testing such as a stress test as well please discuss this with her primary care provider *Continue to take medications as directed *Follow up with your primary care provider in 2-3 days *Return to ER if you should have worsening chest pain, confusion, abdominal pain, vomiting or any new, worsening or concerning symptoms Prescriptions: No Action bupropion HCl 300 MG tablet extended release 24 hr 300 mg PO QAM Qty: 0 RF: 0 bupropion HCl [Wellbutrin SR] 100 MG tablet extended release 12 hr 100 mg PO QAM Qty: 0 RF: 0 levothyroxine 137 MCG tablet 137 mcg PO QDAY Qty: 0 RF: 0 oxycodone 5 MG tablet 5 mg PO Qty: 0 RF: 0 celecoxib [Celebrex] 200 mg capsule 200 mg PO DAILY Qty: 90 RF: 2 trazodone 50 mg tablet 25 mg PO BEDTIME Qty: 0 RF: 0 gabapentin 100 mg capsule 100 mg PO TID Qty: 90 RF: 1 Referrals: Huma Terrazas MD [Primary Care Provider] -
[2020-05-27] MEDS: ACETAMINOPHEN 325 MG TABLET 650 MG PO (16:04)
--- NOTE | 2020-05-27 16:07 | PC.NURSE ---
Pt reports reduction in chest and abdominal pain but now c/o headache. Tylenol given. Pt's vitals stable. Call light within reach.
--- NOTE | 2020-05-27 16:56 | DI.CT.S_ITS ---
PROCEDURE: CT ANGIO CHEST ABDOMEN PELVIS INDICATIONS: chest pain radiating to pelvis TECHNIQUE: Precontrast 5 mm thick sections acquired from the lung apices to the iliac crests. After the administration of intravenous contrast, 2.5 mm thick sections again acquired from the lung apices to the iliac crests. Maximum intensity projection (MIP) oblique sagittal and coronal reformats were then acquired. For radiation dose reduction, the following was used: automated exposure control. COMPARISON: None. FINDINGS: Image quality: Excellent. AORTA: Intramural hematoma: Absent Maximum hematoma thickness: Not applicable prognosis. Focal contrast enhancement: Intramural blood pool (< 2 mm neck or imperceptible communication with aortic lumen): Absent . Ulcer-like projection (broad communication with aortic lumen > 3 mm): Absent . Dissection: Absent Kp classification: Not applicable Maximum aortic diameter: Normal Periaortic hematoma: Absent . CHEST: Lungs and pleura: No acute airspace opacities. No pleural effusions or pneumothorax. Central and peripheral airways are patent and normal in caliber. Mediastinum: Heart size is normal. No pericardial effusion. No mediastinal or hilar adenopathy by size criteria. Central pulmonary arteries are normal in size. Esophagus is normal in caliber. No hiatal hernias. Bones and chest wall: No axillary adenopathy by size criteria. Thyroid gland normal where well seen . No suspicious bony lesions. No vertebral body compression fractures. ABDOMEN: Vasculature: Celiac trunk and mesenteric arteries are patent. Renal arteries are also patent. Solid organs: Liver is normal in size and enhancement. Gallbladder normal . Biliary system is non dilated. Pancreas enhances normally. Spleen is normal in size and enhancement. No adrenal nodules. Both kidneys are normal in size and enhancement, without hydronephrosis. Peritoneum and bowel: No free fluid or air. Bowel loops are normal in caliber and wall thickness. Nodes and vessels: No retroperitoneal or mesenteric adenopathy by size criteria. Inferior vena cava is normal in morphology. Miscellaneous: No ventral hernias. Spinal electrode stimulator device and lead, and plate, noted posteriorly. PELVIS: Genitourinary: Bladder wall thickness is normal. Miscellaneous: No inguinal hernias or adenopathy. No ventral hernias. Bones: No suspicious bony lesions. No vertebral body compression fractures. IMPRESSION: No sign of dissection or aneurysm. Source of current symptoms is not seen. Dictated by: Pranav Zamarripa M.D. on 05/27/2020 at 17:24 Approved by: Pranav Zamarripa M.D. on 05/27/2020 at 17:27
--- NOTE | 2020-05-27 16:58 | DI.US.S_ITS ---
PROCEDURE: US ABDOMEN LIMITED INDICATIONS: elevated liver enzymes and bili TECHNIQUE: Real-time focused scanning was performed of the abdomen, with image documentation. COMPARISON: None. FINDINGS: The liver is normal in echotexture and normal in size. The gallbladder appears normal, the bile ducts are not dilated. The pancreas visualized is normal. IMPRESSION: Normal limited abdominal ultrasound, source of abnormal liver function tests is not seen. Dictated by: Pranav Zamarripa M.D. on 05/27/2020 at 17:46 Approved by: Pranav Zamarripa M.D. on 05/27/2020 at 17:47
[2020-05-27 18:12] LABS: Troponin I < 0.012 ng/mL (0.01-0.034)
[2020-05-27] MEDS: ASPIRIN 81 MG CHEW TAB 324 MG (18:24)
== END 2020-05-27 18:33 | disposition home or self-care (01) ==
PROVIDERS: Emergency Provider Emergency Medicine; PCP Internal Medicine
DX: R07.89 Other chest pain (principal); F10.10 Alcohol abuse, uncomplicated; E03.9 Hypothyroidism, unspecified; F32.9 Major depressive disorder, single episode, unspecified; M79.7 Fibromyalgia; R79.89 Other specified abnormal findings of blood chemistry
CPT/HCPCS: 36415; 71045; 71275; 74174; 76705; 80053; 81003; 82550; 83690; 84484; 85025; 85610; 85730; 93005; 99284; Q9967

== ENCOUNTER → 2020-07-14 10:13 | Outpatient (CLI) | payer MEDICARE, OTHER, SELFPAY ==
--- NOTE | 2020-07-14 10:16 | DI.MG.S_ITS ---
BILATERAL DIGITAL SCREENING MAMMOGRAM 3D/2D WITH CAD POST LUMPECTOMY: 07/14/2020 CLINICAL: Routine screening. Personal history of right breast cancer. Family history of breast cancer. Comparison is made to exams dated: 06/10/2019 mammogram, 03/06/2018 mammogram, and 12/11/2016 mammogram - [facility]. The tissue of both breasts is heterogeneously dense. This may lower the sensitivity of mammography. Current study was also evaluated with a Computer Aided Detection (CAD) system. There is a stable benign global asymmetry in the right breast. There also are stable benign calcifications in the right breast. Additionally, there are benign calcifications in the left breast. Additionally, there also are benign post operative findings in the right breast. No significant masses, calcifications, or other findings are seen in either breast. There has been no significant interval change. IMPRESSION: BENIGN There is no mammographic evidence of malignancy. A 1 year screening mammogram is recommended. This exam was interpreted at Station ID: [id number]. NOTE: For mammograms, a report in lay terms will be sent to the patient. Approximately 15% of breast malignancies will not be visualized mammographically. In the management of a palpable breast mass, a negative mammogram must not discourage biopsy of a clinically suspicious lesion. Electronically Signed By: Xavier Frye acr/penrad:07/14/2020 12:24:18 copy to: LOUISA MAIER M.D., ph: [phone], fax: [phone] letter sent: Normal Exam ACR BI-RADS Category 2: Benign Finding(s) 3342F
== END ==
PROVIDERS: PCP Internal Medicine; Referring Provider Internal Medicine; Visit Provider Internal Medicine
DX: Z12.31 Encounter for screening mammogram for malignant neoplasm of breast (principal); Z85.3 Personal history of malignant neoplasm of breast; Z80.3 Family history of malignant neoplasm of breast
CPT/HCPCS: 77063; 77067

== ENCOUNTER → 2020-11-03 10:55 | Outpatient (CLI) | payer MEDICARE, OTHER, SELFPAY ==
--- NOTE | 2020-11-03 | DI.US.S_ITS ---
ULTRASOUND OF RIGHT AXILLA: 11/03/2020 CLINICAL: Palpable right axilla lump. Comparison is made to exams dated: 07/14/2020 mammogram, 06/25/2019 mammogram, 06/10/2019 mammogram, 03/06/2018 mammogram, 12/11/2016 mammogram, and 11/30/2015 mammogram - [facility]. Color flow, real-time, and Doppler ultrasound of the right axilla were performed. Butler scale images of the real-time examination were reviewed. No significant abnormalities were seen sonographically in the right axilla. IMPRESSION: NEGATIVE There is no sonographic evidence of malignancy. Return to annual mammogram screening schedule is recommended. Future imaging is recommended as follows: 07/15/2021 screening mammogram. This exam was interpreted at Station ID: [id number]. Electronically Signed By: Db Townsend M.D., jr/angie:11/03/2020 14:59:29 copy to: LOUISA MAIER M.D., ph: [phone], fax: [phone] letter sent: Normal Exam Ultrasound BI-RADS: 1 Negative
== END ==
PROVIDERS: PCP Internal Medicine; Referring Provider Internal Medicine; Visit Provider Internal Medicine
DX: R22.31 Localized swelling, mass and lump, right upper limb (principal)
CPT/HCPCS: 76882

== ENCOUNTER → 2021-10-19 10:48 | Outpatient (CLI) | payer MEDICARE, OTHER, SELFPAY ==
--- NOTE | 2021-10-19 | DI.MG.S_ITS ---
BILATERAL DIGITAL SCREENING MAMMOGRAM 3D/2D WITH CAD: 10/19/2021 CLINICAL: Routine screening. Personal history of right breast cancer. Family history of breast cancer. Comparison is made to exams dated: 04/04/2021 mammogram, 04/04/2021 ultrasound - [facility], 07/14/2020 mammogram, 06/25/2019 mammogram, 06/10/2019 mammogram, and 12/11/2016 mammogram - [facility]. The tissue of both breasts is heterogeneously dense. This may lower the sensitivity of mammography. Current study was also evaluated with a Computer Aided Detection (CAD) system. There are benign calcifications in both breasts. There also are benign post operative findings in the right breast. No significant masses, calcifications, or other findings are seen in either breast. There has been no significant interval change. IMPRESSION: BENIGN There is no mammographic evidence of malignancy. A 1 year screening mammogram is recommended. This exam was interpreted at Station ID: [id number]. NOTE: For mammograms, a report in lay terms will be sent to the patient. Approximately 15% of breast malignancies will not be visualized mammographically. In the management of a palpable breast mass, a negative mammogram must not discourage biopsy of a clinically suspicious lesion. Electronically Signed By: Bakari Lu M.D. at/angie:10/19/2021 14:09:21 copy to: LOUISA MAIER M.D., ph: [phone], fax: [phone] copy to: FRANCI GIBBONS letter sent: Normal Exam ACR BI-RADS Category 2: Benign Finding(s) 3342F
== END ==
PROVIDERS: PCP Internal Medicine; Referring Provider Internal Medicine; Visit Provider Internal Medicine
DX: Z12.31 Encounter for screening mammogram for malignant neoplasm of breast (principal); Z85.3 Personal history of malignant neoplasm of breast; Z80.3 Family history of malignant neoplasm of breast
CPT/HCPCS: 77063; 77067

== ENCOUNTER → 2022-02-12 10:18 | Outpatient (CLI) | payer MEDICARE, OTHER, SELFPAY ==
--- NOTE | 2022-02-12 10:19 | DI.RAD.S_ITS ---
PROCEDURE: XR CERVICAL SPINE 4V OR 5V INDICATIONS: NECK PAIN TECHNIQUE: 5 views of the cervical spine acquired. COMPARISON: None. FINDINGS: Bones: No fractures or dislocations to the C7-T1 level. Degenerative endplate changes are seen at C5-6 and C6-7 levels. Oblique images demonstrate bilateral bony foraminal stenosis at C5-6 and C6-7 levels. Soft tissues: No prevertebral soft tissue swelling. 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 No fracture or dislocation. Dictated by: Ayaan Perez M.D. on 02/12/2022 at 12:55 Approved by: Ayaan Perez M.D. on 02/12/2022 at 12:56
== END ==
PROVIDERS: PCP Internal Medicine; Referring Provider Physical Medicine & Rehabilitation; Visit Provider Physical Medicine & Rehabilitation
DX: M50.322 Other cervical disc degeneration at C5-C6 level (principal); M48.02 Spinal stenosis, cervical region; M47.812 Spondylosis without myelopathy or radiculopathy, cervical region; M47.816 Spondylosis without myelopathy or radiculopathy, lumbar region; M48.062 Spinal stenosis, lumbar region with neurogenic claudication; M79.7 Fibromyalgia; M21.371 Foot drop, right foot; G03.9 Meningitis, unspecified; M96.1 Postlaminectomy syndrome, not elsewhere classified; R26.81 Unsteadiness on feet
CPT/HCPCS: 72050; 99214

== ENCOUNTER → 2022-08-21 11:58 | Outpatient (CLI) | payer MEDICARE, OTHER, SELFPAY ==
--- NOTE | 2022-08-21 | DI.US.S_ITS ---
ULTRASOUND OF RIGHT BREAST: 08/21/2022 CLINICAL: RIGHT AXILLA ASYMETRY PER PATIENT. Comparison is made to exams dated: 08/21/2022 mammogram, 10/19/2021 mammogram - [facility], 04/04/2021 ultrasound, 04/04/2021 mammogram - [facility], 11/03/2020 ultrasound, and 07/14/2020 mammogram - [facility]. Color flow ultrasound of the right breast was performed on the areas of interest. Butler scale images of the real-time examination were reviewed. IMPRESSION: NEGATIVE There is no sonographic evidence of malignancy. There is no mammographic or sonographic abnormality seen in the right axilla to correspond with the palpable abnormality in the right axilla, however, clinical followup is recommended. Return to annual mammogram screening schedule is recommended. This exam was interpreted at Station ID: [id number]. Electronically Signed By: Natty Maddox M.D. lk/:08/21/2022 13:51:33 copy to: LOUISA MAIER M.D., ph: [phone], fax: [phone] letter sent: Clinical Evaluation Ultrasound BI-RADS: 1 Negative
--- NOTE | 2022-08-21 | DI.MG.S_ITS ---
BILATERAL DIGITAL DIAGNOSTIC MAMMOGRAM 3D/2D: 08/21/2022 CLINICAL: Right breast lump. Comparison is made to exams dated: 10/19/2021 mammogram, 07/14/2020 mammogram, and 06/25/2019 mammogram - [facility]. Both breasts are heterogeneously dense, which may obscure small masses (category c / 51-75% glandular tissue). There are benign post operative changes in the right breast. There also are benign coarse calcifications in both breasts. No significant masses, calcifications, or other findings are seen in either breast. IMPRESSION: INCOMPLETE: NEEDS ADDITIONAL IMAGING EVALUATION There is no mammographic abnormality seen in the right axilla to correspond with the palpable abnormality in the right axilla, however, targeted ultrasound of the right breast is recommended and will be performed immediately following this exam. This exam was interpreted at Station ID: [id number]. NOTE: For mammograms, a report in lay terms will be sent to the patient. Approximately 15% of breast malignancies will not be visualized mammographically. In the management of a palpable breast mass, a negative mammogram must not discourage biopsy of a clinically suspicious lesion. Electronically Signed By: Natty Maddox M.D. lk/:08/21/2022 12:50:41 copy to: LOUISA MAIER M.D., ph: [phone], fax: [phone] ACR BI-RADS Category 0: Incomplete 3340F
== END ==
PROVIDERS: PCP Internal Medicine; Referring Provider Surgery; Visit Provider Surgery
DX: N63.10 Unspecified lump in the right breast, unspecified quadrant; R92.2 Inconclusive mammogram
CPT/HCPCS: 76882; 77066; G0279

== ENCOUNTER → 2022-11-19 11:37 | Outpatient (CLI) | payer MEDICARE, OTHER, SELFPAY ==
[2022-11-19 12:40] LABS: Add Manual Diff / Slide Review NO; Basophils Absolute Auto 0 /uL (0-100); Basophils Percent Auto 0.7 % (0-2); Eosinophils Absolute Auto 100 /uL (0-450); Eosinophils Percent Auto 2.7 % (2-4); Hemoglobin 13.9 g/dL (12.0-16.0); Lymphocytes Absolute Auto 1400 /uL (1100-4500); Mean Corpuscular HGB Conc 34.8 % (30-36); Mean Corpuscular Hemoglobin 31.4 PG (26-34); Mean Corpuscular Volume 90.2 fL (80-100); Monocytes Absolute Auto 500 /uL (0-900); Monocytes Percent Auto 9.3 % (3-14); Neutrophils Absolute Auto 3000 /uL (1500-7000); Neutrophils Percent Auto 59.3 % (50-75); Platelet Count 130 X10^3/uL (150-400); Red Blood Cell Count 4.43 X10^6/uL (4.0-5.2); Red Cell Distribution Width 13.2 % (11.6-14.8)
[2022-11-19 12:51] LABS: INR 1.1 (0.9-1.3); Prothrombin Time 12.1 SECONDS (10.1-12.7)
[2022-11-19 13:03] LABS: BUN Creatinine Ratio 17.8 (6-22); Blood Urea Nitrogen 13 mg/dL (7-17); Calcium 8.7 mg/dL (8.4-10.2); Carbon Dioxide 27 mmol/L (22-32); Chloride 106 mmol/L (98-107); Estimated Glomerular Filt Rate > 60 mL/min (>60); Glucose 88 mg/dL (80-110); Potassium 4.4 mmol/L (3.4-5.1); Sodium 137 mmol/L (137-145)
[2022-11-19 13:06] LABS: HEMOLYSIS 74 (0-50)
== END ==
PROVIDERS: PCP Internal Medicine; Referring Provider Physical Medicine & Rehabilitation; Visit Provider Physical Medicine & Rehabilitation
DX: Z01.818 Encounter for other preprocedural examination (principal); Z51.81 Encounter for therapeutic drug level monitoring; Z01.812 Encounter for preprocedural laboratory examination
CPT/HCPCS: 36415; 80048; 85025; 85610; 93005; 93010

== ENCOUNTER → 2023-02-10 11:12 | Outpatient (CLI) | payer MEDICARE, OTHER, SELFPAY ==
--- NOTE | 2023-02-10 11:14 | DI.MRI.S_ITS ---
PROCEDURE: MR LUMBAR SPINE WO CON INDICATIONS: lumbar stenosis TECHNIQUE: Noncontrast sagittal T1 spin echo and T2 fast echo, sagittal STIR, and T2 fast spin echo through the lumbar spine. In cases with scoliosis, additional coronal T2 fast spin echo may be performed. COMPARISON: [facility], MR, MR LUMBAR SPINE WO CON, 11/26/2017, 11:46. FINDINGS: Image quality: Excellent. Alignment and Curvature: Levocurvature of the lumbar spine. Trace retrolisthesis of T12 on L1. Trace anterolisthesis of L2 on L3. Bone Marrow: Marrow is of normal overall signal. Stable chronic appearing compression deformity of the superior endplate of L2. No acute vertebral body compression fractures. Spinal Cord: Conus medullaris terminates at the T12-L1 level. Visualized cord demonstrates normal signal and size. Paraspinous Soft Tissues: No paravertebral masses. Right renal simple cyst. In the T12-L1: Disc desiccation and height loss. Posterior disc bulge. Facet arthropathy. No central canal stenosis. Stable mild bilateral neural foraminal stenosis. L1-L2: Disc desiccation and height loss. Posterior disc bulge. Facet arthropathy. Mild central canal stenosis is stable. Stable moderate bilateral neural foraminal stenosis. L2-L3: Disc desiccation and height loss with posterior disc bulge. Facet arthropathy. Epidural lipomatosis. Stable moderate central canal stenosis stable mild bilateral neural foraminal stenosis. L3-L4: Severe disc desiccation and height loss. Diffuse disc bulge. Superimposed right paracentral disc extrusion which is new compared to prior. This results in [id number] central canal stenosis which is progressed from prior. Stable moderate left and moderate to severe right neural foraminal stenosis. L4-L5: Severe disc desiccation and height loss. Posterior disc bulge. Facet arthropathy. 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 Stable moderate bilateral neural foraminal stenosis. L5-S1: Disc desiccation and height loss with posterior disc bulge. Facet arthropathy. Stable moderate central canal stenosis and moderate bilateral neural foraminal stenosis. IMPRESSION: 1. Multilevel degenerative changes of the lumbar spine as described above. 2. There is progression at L3-L4 with new disc extrusion extending superiorly resulting in [id number] central canal stenosis. Stable moderate left and moderate to severe right neural foraminal stenosis. 3. Degenerative changes at other levels are stable compared to prior and described above. 4. 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 Dictated by: Fidencio French M.D. on 02/11/2023 at 8:44 Approved by: Fidencio French M.D. on 02/11/2023 at 9:19
== END ==
PROVIDERS: PCP Internal Medicine; Referring Provider Physical Medicine & Rehabilitation; Visit Provider Physical Medicine & Rehabilitation
DX: M48.062 Spinal stenosis, lumbar region with neurogenic claudication (principal); M51.26 Other intervertebral disc displacement, lumbar region
CPT/HCPCS: 72148